=== PATIENT | female | born 1995 | race Caucasian/White ===

== ENCOUNTER 2021-04-18 12:38 | Outpatient (REF) | payer OTHER, SELFPAY ==
--- NOTE | ~2021-04-18 | XR_ITS ---
EXAMINATION: XR CHEST CLINICAL INFORMATION: Acute bronchospasm. COMPARISON: Chest radiographs dated 05/21/2018. TECHNIQUE: 2 views of the chest were obtained. FINDINGS: The lungs are clear. The cardiomediastinal silhouette is normal in size. There is no pleural effusion or pneumothorax. No acute osseous abnormality. XR/XR chest 2V IMPRESSION: No acute cardiopulmonary findings.
== END 2021-04-18 12:39 | disposition home or self-care (01) ==
LOC: HO.XRAY 12:38
PROVIDERS: PCP Hospitalist; Visit Provider Hospitalist
DX: J98.01 Acute bronchospasm (principal)
CPT/HCPCS: 71046

== ENCOUNTER 2021-06-10 12:48 | Outpatient (REF) | payer OTHER, SELFPAY | END 2021-06-10 12:49 | disposition home or self-care (01) | LOC: HO.LNP 12:48 | PROVIDERS: Visit Provider Physician Assistant Medical | DX: Z20.822 Contact with and (suspected) exposure to COVID-19 (principal) | CPT/HCPCS: U0003; U0005 ==

== ENCOUNTER 2022-02-14 08:56 | Outpatient (REF) | payer OTHER, SELFPAY ==
[2022-02-14 15:35] LABS: CT PCR NOT DETECTED (Not Detect.); NG PCR NOT DETECTED (Not Detect.)
== END 2022-02-14 08:57 | disposition home or self-care (01) ==
LOC: HO.LAB 08:56
PROVIDERS: Visit Provider Advanced Practice Midwife
DX: Z01.419 Encounter for gynecological examination (general) (routine) without abnormal findings (principal); Z20.2 Contact with and (suspected) exposure to infections with a predominantly sexual mode of transmission
CPT/HCPCS: 87491; 87591; 88142

== ENCOUNTER 2022-04-27 08:09 | Outpatient (REF) | payer OTHER, SELFPAY ==
[2022-04-27 11:20] LABS: MANUAL DIFF FLAG NO
[2022-04-27 11:37] LABS: Basophils Percent Auto 0.4 % (0-2); Eosinophils Absolute Auto 0.2 X10*3/uL (0.0-0.4); Eosinophils Percent Auto 2.5 % (0-4); Hematocrit 37.8 % (37.0-47.0); Hemoglobin 12.6 g/dl (12.0-16.0); Imm Gran Abs Auto 0.05 X10*3/uL (0.00-0.03); Imm Gran Pct Auto 0.7 % (0.0-0.4); Lymphocytes Absolute Auto 1.4 X10*3/uL (1.2-4.9); Lymphocytes Percent Auto 19.2 % (20-40); Mean Corpuscular HGB Conc 33.3 g/dl (31.0-35.0); Mean Corpuscular Hemoglobin 28.3 pg (27.0-33.0); Mean Corpuscular Volume 84.8 fL (80.0-98.0); Mean Platelet Volume 9.5 fL (9.4-12.3); Monocytes Absolute Auto 0.7 X10*3/uL (0.1-1.2); Monocytes Percent Auto 9.3 % (2-11); Neutrophils Absolute Auto 4.9 x10*3/uL (2.0-8.3); Neutrophils Percent Auto 67.9 % (45-73); Platelet Count 282 X10*3/uL (160-400); Red Blood Count 4.46 X10*6/uL (4.20-5.50); White Blood Count 7.2 X10*3/uL (4.8-10.8)
[2022-04-27 12:12] LABS: Alanine Aminotransferase 35 U/L (0-31); Albumin Level 4.1 g/dL (3.5-5.0); Alkaline Phosphatase 57 U/L (39-117); Anion Gap 14 (12-20); Aspartate Amino Transferase 29 U/L (5-31); Bilirubin Total 0.5 mg/dL (0.0-1.0); Blood Urea Nitrogen 11 mg/dL (9-16); Calcium 9.2 mg/dL (8.4-10.2); Carbon Dioxide 24 mmol/L (22-29); Chloride 106 mmol/L (96-108); Estimated Glomerular Filt Rate > 60; Glucose Fasting 90 mg/dL (60-99); Magnesium 2.2 mg/dL (1.6-2.6); Potassium 4.6 mmol/L (3.3-5.1); Sodium 139 mmol/L (135-145); Total Protein 6.7 g/dL (6.5-8.0)
[2022-04-27 12:17] LABS: TSH reflex Free T4 2.96 uIU/mL (0.32-4.0)
== END 2022-04-27 08:10 | disposition home or self-care (01) ==
LOC: HO.HMGCLDS 08:09
PROVIDERS: PCP Internal Medicine; Visit Provider Internal Medicine
DX: J45.901 Unspecified asthma with (acute) exacerbation (principal); E66.09 Other obesity due to excess calories; Z76.89 Persons encountering health services in other specified circumstances
CPT/HCPCS: 36415; 80053; 83735; 84443; 85025

== ENCOUNTER 2022-06-13 16:54 | Outpatient (REF) | payer OTHER, SELFPAY ==
[2022-06-13 17:52] LABS: Influenza A PCR POSITIVE (Negative); Influenza B PCR NEGATIVE (Negative); Resp Syncy Virus RNA Qual PCR NEGATIVE (Negative); SARS COV2 PCR INHOUSE NEGATIVE (Negative)
== END 2022-06-13 16:55 | disposition home or self-care (01) ==
LOC: HO.LNP 16:54
PROVIDERS: Visit Provider Nurse Practitioner Family
DX: Z20.822 Contact with and (suspected) exposure to COVID-19 (principal); R09.89 Other specified symptoms and signs involving the circulatory and respiratory systems
CPT/HCPCS: 0241U

== ENCOUNTER 2023-03-07 14:55 | Outpatient (AMB) | payer OTHER, SELFPAY ==
[2023-03-07 15:05] VITALS: BP 126/60; PULSE 87; O2SAT 98; BMI 41.5
--- NOTE | 2023-03-07 15:05 | A.OFFVIS_ITS ---
Intake Vital Signs 03/07/23 15:05 Height 5 ft 6 in Weight 256 lb 13.416 oz BMI 41.5 BP 126/60 Blood Pressure Location Rt brachial Position Sitting Pulse 87 Pulse Source Pulse Oximeter Pulse Oximetry (%) 98 Oxygen Delivery Method Room Air Intake Visit Reasons: Asthma Medical Educator Required: No Allergies fluconazole [From DIFLUCAN] Allergy (Unknown, Verified 03/07/23 15:08) RASH HPI HPI Comments History of Present Illness Details The patient is here for pulmonary evaluation. The patient is a 19 year woman presenting here with chronic cough. The patient states that she has had a significant cough for many years. Although, has been getting worse. Sometimes she has some severe coughing spells which she ends up vomiting. She has never passing out from her coughing spells. Her cough used to be more dry. Now, after starting inhaler therapy she has noticed that at times is more congested. She has a hard time expectorating her. She denies any exposure to any fumes or toxins. She denies any smoking. The patient does have underlying allergies although she has not had allergy testing many years. She has been treated with asthma with albuterol. She does get partial relief with the albuterol. She has tried other inhalers now Symbicort that her provides partial relief. She still struggling with a cough. Has a hard time sleeping because of the cough. She also wakes up short of breath. The patient is obese. She does have increased cardiovascular risk factors. Her or partner is with her and he is concerned because sometimes she does stop breathing in needs to wake her up or change her position. The patient has never had a sleep study. She also has underlying reflux symptoms. She takes a lot of times. Patient understands that the micro aspirations and pharyngeal angio penetration from underlying reflux disease can result with a worsening cough. The patient was coughing in the room. It appears that her cough is suggestive of some degree of tracheomalacia. Explained to the patient that with tracheomalacia is difficult to expectorate since her airway may be collapsing due to the forced exhalation while coughing. Therefore, will go ahead and request a chest x-ray and PFTs. The patient may warrant a CT scan if the x-ray is not helpful. In meantime will also request allergy testing and provide her with cough suppressant therapy. The patient does have an elevated Kingsford score of 10/24 and will also request a home sleep study. [facility] Medical History (Updated 03/07/23 @ 22:45 by Ramses Vidal MD) Allergy-induced asthma Chronic cough Surgical History History of tooth extraction Family History Father Medical history unknown Mother Hyperlipidemia Hypertension Afib Alcoholism Substance use disorder Mental health disorder Social History Housing: Condominium Alcohol intake: current Alcohol intake frequency: a few times a month Patient Tobacco Use Status: Never used Tobacco e-Cigarette/Vaping Use: Never Used service: No Current occupational status: employed Current occupation: [employer] Sexual orientation: Straight/Heterosexual Gender identity: Female Cognitive needs: No Hearing needs: No Vision needs: Yes Review of Systems Const Denies fever(s) Eyes Denies change in vision ENT Reports nasal congestion, Reports nasal discharge, Denies throat swelling and Denies tongue swelling Card Denies chest pain Resp Reports chest congestion and Reports cough GI Reports dyspepsia, Reports heartburn and Reports vomiting Musc Reports no additional complaints Skin/Breast Denies rash Neuro Reports no additional complaints Endo Denies flushing Harpal/Lymph Denies easy bruising Aller/Immun Denies throat swelling and Denies tongue swelling Physical Exam Vital Signs: Last Vital Signs Pulse 87 03/07/23 15:05 BP 126/60 03/07/23 15:05 Pulse Ox 98 03/07/23 15:05 Oxygen Delivery Method Room Air 03/07/23 15:05 BMI result Body Mass Index 41.5 Const General: comfortable HEENT Head: Yes normocephalic Neck Neck: Yes supple Chest Chest palpation & inspection: normal inspection of the chest Resp Effort & Inspection: normal respiratory effort and Actively coughing Quality: actively coughing Cardio Rate: regular rate Rhythm: regular rhythm Heart sounds: S1 normal heart sound present and S2 normal heart sound present GI Palpation (GI): Soft to palpation Skin General skin exam: no rashes or lesions noted Extrem General: Yes no clubbing, cyanosis or edema Assessment & Plan Assessment & Plan (1) Asthma, moderate persistent: Code(s): J45.40 - Moderate persistent asthma, uncomplicated Qualifiers: Asthma complication type: uncomplicated Qualified Code(s): J45.40 - Moderate persistent asthma, uncomplicated (2) Environmental allergies: Code(s): Z91.09 - Other allergy status, other than to drugs and biological substances (3) Chronic cough: Code(s): R05.3 - Chronic cough (4) SHARON (obstructive sleep apnea): Code(s): G47.33 - Obstructive sleep apnea (adult) (pediatric) Plan The patient is presenting with chronic cough. The cough is pretty significant and very suspicious for tracheomalacia. Possibly exacerbated by her chronic reflux disease. Also chronic reflux and microaspiration can also result in worsening asthma symptoms. Recommendations: Chest x-ray. If nondiagnostic will request a CT scan of the chest pulmonary function studies home sleep study blood work and allergy testing continue Symbicort short-acting beta agonist as needed cough suppressant: Tessalon Perles and guaifenesin with codeine follow-up after the PFTs and sleep study. If the patient is no better or worsens she is to call for an earlier assessment. Orders: Orders Rast Allergen Today H11.32 - Conjunctival hemorrhage, left eye, J45.40 - Moderate persistent asthma, uncomplicated, Z91.09 - Other allergy status, other than to drugs and biological substances Complete Blood Count Auto Diff Today H11.32 - Conjunctival hemorrhage, left eye, J45.40 - Moderate persistent asthma, uncomplicated, Z91.09 - Other allergy status, other than to drugs and biological substances Erythrocyte Sedimentation Rate Today H11.32 - Conjunctival hemorrhage, left eye, J45.40 - Moderate persistent asthma, uncomplicated, Z91.09 - Other allergy status, other than to drugs and biological substances Hypersensitive Pneumonitis Prf Today H11.32 - Conjunctival hemorrhage, left eye, J45.40 - Moderate persistent asthma, uncomplicated, R91.8 - Other nonspecific abnormal finding of lung field, Z91.09 - Other allergy status, other than to drugs and biological substances PFT pulmonary function test Today G47.33 - Obstructive sleep apnea (adult) (pediatric), R05.3 - Chronic cough RT home sleep study Today G47.33 - Obstructive sleep apnea (adult) (pediatric), R05.3 - Chronic cough Medications: New benzonatate 200 mg PO BID 30 days PRN 60 caps 10RF cough codeine-guaifenesin 10-100 mg/5 mL 10 mL PO Q6H 10 days PRN 300 mL 0RF cough omeprazole 40 mg PO DAILY 30 caps 5RF Refilled albuterol sulfate 90 mcg/actuation (ProAir HFA) 2 puffs PO Q6H PRN 8.5 ea 11RF for wheezing J45.20 - Mild intermittent asthma, uncomplicated Coding Level of Care Code New Pt Level 4 (80316) Diagnoses Asthma, moderate persistent J45.40 Asthma complication type: uncomplicated Environmental allergies Z91.09 Chronic cough R05.3 SHARON (obstructive sleep apnea) G47.33 Time Spent (min) 40
== END 2023-03-07 15:34 | disposition home or self-care (01) ==
PROVIDERS: PCP Internal Medicine; Visit Provider Hospitalist
DX: J45.40 Moderate persistent asthma, uncomplicated (principal); Z91.09 Other allergy status, other than to drugs and biological substances; R05.3 Chronic cough; G47.33 Obstructive sleep apnea (adult) (pediatric)
CPT/HCPCS: 99204

== ENCOUNTER → 2023-03-07 14:55 | Outpatient (BNVA) | payer OTHER, SELFPAY | PROVIDERS: PCP Internal Medicine; Visit Provider Hospitalist | DX: J45.40 Moderate persistent asthma, uncomplicated (principal); R05.3 Chronic cough; G47.33 Obstructive sleep apnea (adult) (pediatric); Z91.09 Other allergy status, other than to drugs and biological substances | CPT/HCPCS: 99202 ==

== ENCOUNTER 2023-04-02 14:48 | Outpatient (REF) | payer OTHER, SELFPAY | END 2023-04-02 14:49 | disposition home or self-care (01) | LOC: HO.RESP 14:48 | PROVIDERS: PCP Internal Medicine; Visit Provider Hospitalist | DX: R05.3 Chronic cough (principal); G47.33 Obstructive sleep apnea (adult) (pediatric) | CPT/HCPCS: 94640 ==

== ENCOUNTER → 2023-04-16 09:04 | Outpatient (REF) | payer OTHER, SELFPAY | LOC: HO.SL 09:04 | PROVIDERS: PCP Internal Medicine; Visit Provider Hospitalist | DX: G47.33 Obstructive sleep apnea (adult) (pediatric) (principal); R05.3 Chronic cough | CPT/HCPCS: 95806 ==

== ENCOUNTER → 2023-04-16 09:20 | Outpatient (BNV) | payer OTHER, SELFPAY | PROVIDERS: PCP Internal Medicine; Visit Provider Internal Medicine | DX: R06.83 Snoring (principal) | CPT/HCPCS: 95806 ==

== ENCOUNTER 2023-07-19 15:34 | Outpatient (AMB) | payer OTHER, SELFPAY ==
[2023-07-19 15:39] VITALS: PULSE 92; O2SAT 96; BMI 37.8
--- NOTE | 2023-07-19 15:39 | A.OFFVIS_ITS ---
Intake Vital Signs 07/19/23 15:39 Height 5 ft 4 in Weight 220 lb BMI 37.8 Pulse 92 Pulse Source Pulse Oximeter Pulse Oximetry (%) 96 Oxygen Delivery Method Room Air Intake Visit Reasons: Asthma Enterostomal Nurse Required: No Allergies fluconazole [From DIFLUCAN] Allergy (Unknown, Verified 07/19/23 15:40) RASH HPI HPI Comments History of Present Illness Details The patient is a 27 year woman presenting here with chronic cough. The patient states that she has had a significant cough for many years. Although, has been getting worse. Sometimes she has some severe coughing spells which she ends up vomiting. She has never passing out from her coughing spells. Her cough used to be more dry. Now, after starting inhaler therapy she has noticed that at times is more congested. She has a hard time expectorating her. She denies any exposure to any fumes or toxins. She denies any smoking. The patient does have underlying allergies although she has not had allergy testing many years. She has been treated with asthma with albuterol. She does get partial relief with the albuterol. She has tried other inhalers now Symbicort that her provides partial relief. She still struggling with a cough. Has a hard time sleeping because of the cough. She also wakes up short of breath. The patient is obese. She does have increased cardiovascular risk factors. Her or partner is with her and he is concerned because sometimes she does stop breathing in needs to wake her up or change her position. The patient has never had a sleep study. She also has underlying reflux symptoms. She takes a lot of times. Patient understands that the micro aspirations and pharyngeal angio penetration from underlying reflux disease can result with a worsening cough. The patient was coughing in the room. It appears that her cough is suggestive of some degree of tracheomalacia. Explained to the patient that with tracheomalacia is difficult to expectorate since her airway may be collapsing due to the forced exhalation while coughing. Therefore, will go ahead and request a chest x-ray and PFTs. The patient may warrant a CT scan if the x-ray is not helpful. In meantime will also request allergy testing and provide her with cough suppressant therapy. The patient does have an elevated Millwood score of 10/24 and will also request a home sleep study. 07/19/2023 the patient is here for pulmon tony follow-up visit. The patient has been sick now for several days. Positive sick contacts her developing worsening cough moderate to severe. Also significant wheezing. She has been using her respiratory therapy. Our only been partially helpful. We did review her PFTs the patient has significant reversible obstruction consistent with her diagnosis of asthma. She has been on Symbicort. Will go ahead and try to maximize her respiratory medicine. However, she continues to be symptomatic or having recurrent flare-ups she will benefit from biologic therapy. She has yet to get her blood work. She will get her blood work when she is better and off the prednisone. COUNT INCLUDES THE [facility] Medical History (Updated 07/21/23 @ 20:45 by Ramses Vidal MD) Chronic cough Allergy-induced asthma Surgical History History of tooth extraction Family History Father Medical history unknown Mother Hyperlipidemia Hypertension Afib Alcoholism Substance use disorder Mental health disorder Social History Housing: Condominium Alcohol intake: current Alcohol intake frequency: a few times a month Patient Tobacco Use Status: Never used Tobacco e-Cigarette/Vaping Use: Never Used service: No Current occupational status: employed Current occupation: [employer] Sexual orientation: Straight/Heterosexual Gender identity: Female Cognitive needs: No Hearing needs: No Vision needs: Yes Review of Systems Const Denies fever(s) Eyes Denies change in vision ENT Reports nasal congestion, Reports nasal discharge, Denies throat swelling and Denies tongue swelling Card Denies chest pain and Reports dyspnea on exertion Resp Reports chest congestion, Reports cough, Reports dyspnea on exertion and Reports wheezing GI Reports dyspepsia, Reports heartburn and Reports vomiting Musc Reports no additional complaints Skin/Breast Denies rash Neuro Reports no additional complaints Endo Denies flushing Harpal/Lymph Denies easy bruising Aller/Immun Denies throat swelling, Denies tongue swelling and Reports wheezing Physical Exam Vital Signs: Last Vital Signs Pulse 92 07/19/23 15:39 Pulse Ox 96 07/19/23 15:39 Oxygen Delivery Method Room Air 07/19/23 15:39 BMI result Body Mass Index 37.8 Const General: comfortable HEENT Head: Yes normocephalic Neck Neck: Yes supple Chest Chest palpation & inspection: normal inspection of the chest Resp Effort & Inspection: normal respiratory effort, Actively coughing Quality: actively coughing and prolonged expiratory phase Auscultation: wheezes Cardio Rate: regular rate Rhythm: regular rhythm Heart sounds: S1 normal heart sound present and S2 normal heart sound present GI Palpation (GI): Soft to palpation Skin General skin exam: no rashes or lesions noted Extrem General: Yes no clubbing, cyanosis or edema Assessment & Plan Assessment & Plan (1) Asthma, moderate persistent: Code(s): J45.40 - Moderate persistent asthma, uncomplicated Qualifiers: Asthma complication type: with acute exacerbation Qualified Code(s): J45.41 - Moderate persistent asthma with (acute) exacerbation (2) Environmental allergies: Code(s): Z91.09 - Other allergy status, other than to drugs and biological substances (3) Chronic cough: Code(s): R05.3 - Chronic cough (4) SHARON (obstructive sleep apnea): Code(s): G47.33 - Obstructive sleep apnea (adult) (pediatric) Plan start Zpack start Prednisone cough syrup blood work and allergy testing not done as of yet continue Symbicort Add Spiriva short-acting beta agonist as needed consider biologic therapy cough suppressant: Tessalon Perles and guaifenesin with codeine F/U 3-4 months or sooner if no better Medications: New budesonide-formoterol 160-4.5 mcg/actuation (Symbicort) 2 puffs inhalation BID 30 days 10.2 grams 11RF J44.89 - Other specified chronic obstructive pulmonary disease azithromycin 500 mg PO DAILY 5 days 5 tabs 0RF prednisone PO daily; Take 2 tabs daily x 5 days, then 1 tablet daily x 5 days 10 days 15 tabs 0RF codeine-guaifenesin 10-100 mg/5 mL 10 mL PO Q6H 10 days PRN 300 mL 0RF cough Coding Level of Care Code Est Pt Level 4 (39260) Diagnoses Moderate persistent asthma with acute exacerbation J45.41 Asthma complication type: with acute exacerbation Environmental allergies Z91.09 Chronic cough R05.3 SHARON (obstructive sleep apnea) G47.33 Time Spent (min) 17
== END 2023-07-19 15:58 | disposition home or self-care (01) ==
PROVIDERS: PCP Internal Medicine; Visit Provider Hospitalist
DX: J45.41 Moderate persistent asthma with (acute) exacerbation (principal); Z91.09 Other allergy status, other than to drugs and biological substances; R05.3 Chronic cough; G47.33 Obstructive sleep apnea (adult) (pediatric)
CPT/HCPCS: 99214

== ENCOUNTER → 2023-07-19 15:34 | Outpatient (BNVA) | payer OTHER, SELFPAY | PROVIDERS: PCP Internal Medicine; Visit Provider Hospitalist | DX: J45.41 Moderate persistent asthma with (acute) exacerbation (principal); R05.3 Chronic cough; G47.33 Obstructive sleep apnea (adult) (pediatric); Z79.899 Other long term (current) drug therapy; Z91.09 Other allergy status, other than to drugs and biological substances | CPT/HCPCS: 99212 ==

== ENCOUNTER 2023-07-24 13:13 | Outpatient (REF) | payer OTHER, SELFPAY ==
[2023-07-25 05:01] LABS: CT PCR NOT DETECTED (Not Detect.); NG PCR NOT DETECTED (Not Detect.)
== END 2023-07-24 13:14 | disposition home or self-care (01) ==
LOC: HO.LNP 13:13
PROVIDERS: PCP Internal Medicine; Visit Provider Advanced Practice Midwife
DX: Z01.419 Encounter for gynecological examination (general) (routine) without abnormal findings (principal); Z20.2 Contact with and (suspected) exposure to infections with a predominantly sexual mode of transmission
CPT/HCPCS: 0353U; 81025; 88142; 99395

== ENCOUNTER 2023-07-24 13:13 | Outpatient (AMB) | payer OTHER, SELFPAY ==
--- NOTE | 2023-07-24 13:28 | MHC.OFFVIS ---
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 Doing well with concerns: Menses q 35-36, early day 27 in May and and none since. Hx. of HCTZ use in the past, FH HTN. She tries to eat healthy and stays active with exercise. Currently is sexually active without condoms, is at [facility] [place] in the [facility] program last year until they closed. She reports all her lab hormone levels were normal. She admits her had surgery recently. She denies any other changes or events I could affect her cycling. She denies vaginal itching and irritation. STI screening offered; she accepts. Denies family history of breast, ovarian or colon cancer. Last pap smear 2021, negative. Hx. LGSIL. PFSH Medical History Chronic cough Allergy-induced asthma Surgical History History of tooth extraction Family History Father Medical history unknown Mother Hyperlipidemia Hypertension Afib Alcoholism Substance use disorder Mental health disorder Social History Housing: Condominium Alcohol intake: current Alcohol intake frequency: a few times a month Patient Tobacco Use Status: Never used Tobacco e-Cigarette/Vaping Use: Never Used service: No Current occupational status: employed Current occupation: [employer] Sexual orientation: Straight/Heterosexual Gender identity: Female Cognitive needs: No Hearing needs: No Vision needs: Yes Female Reproductive History Menstrual Date of last menstrual period: 05/18/23 control method: none Total pregnancies: 1 Full term: 1 Number of Living Children: 1 Date of last pap smear: 02/14/22 (neg) History of abnormal pap smear: Yes (09/23 lgsil 02/23 neg,neg) Review of Systems Const All systems reviewed & are unremarkable except as noted in HPI and below Reports as per HPI Eyes Reports no additional complaints ENT Reports no additional complaints Card Reports no additional complaints Resp Reports no additional complaints GI Reports as per HPI and Reports no additional complaints Reports as per HPI Musc Reports no additional complaints Skin/Breast Reports as per HPI Neuro Reports no additional complaints Psych Reports no additional complaints Endo Reports no additional complaints Harpal/Lymph Reports no additional complaints Aller/Immun Reports no additional complaints Physical Exam Vital Signs: Last Vital Signs BP 124/86 07/24/23 14:07 BMI result Body Mass Index 43.1 Const General: cooperative, healthy appearing, no acute distress, well developed and alert Orientation/consciousness: patient oriented x3 HEENT Head: Yes normal to inspection Eyes General: appearance normal, both eyes and all related structures Neck Neck: Yes normal visual inspection Thyroid: Thyroid normal Chest Chest palpation & inspection: normal inspection of the chest and other (no puckering, dimpling, peau de orange, retraction, discharge, masses) Breast/axilla inspection: normal inspection of the breasts Breast/axilla palpation: normal palpation of the breasts Resp Effort & Inspection: normal respiratory effort GI Inspection: Yes normal to inspection and Yes obesity Palpation (GI): Soft to palpation Rectal Exam - Female: deferred General: Yes bladder normal to palpation External Female Exam: normal external appearance and normal appearance of the urethra Speculum Exam - Vagina: normal appearance of the vagina, normal palpation and normal vaginal discharge Speculum Exam - Cervix: normal appearance of the cervix and normal palpation Bimanual exam- vagina & uterus: normal bimanual exam, normal palpation, uterine size normal, bladder normal to palpation, normal palpation and non-tender Bimanual Exam- Adnexa, other: no masses Skin General skin exam: no rashes or lesions noted Rashes: no rashes Neuro General: patient oriented x3 Cognition (Neuro): normal cognition Extrem General: Yes normal to inspection Psych Attitude: cooperative Thought process: Normal thought process present Results AMB Test Urine AMB Test Urine Negative Last Edit by TRISTON Luke on 07/24/23 13:39 Results Reviewed Results Reviewed: Laboratory Last Values Tst Clinic Negative 07/24/23 13:38 Assessment & Plan Assessment & Plan (1) Encounter for well woman exam with routine gynecological exam: Code(s): Z01.419 - Encounter for gynecological examination (general) (routine) without abnormal findings Plan Discussed: Current recommendations for pap smears per ASCCP guidelines. Breast awareness and periodic breast exams. Maintain a healthy lifestyle including a well balanced diet and routine exercise, maintaining a healthy weight. Discussed stress, weight elevated BMI, in other factors that can affect menstrual cycling regularity. Restart vitamins. Monitor monthly periods, repeat home test as indicated. Discuss the use of Provera if not cycling regularly to call the office for follow-up. Call [facility] [place] regarding their infertility program restarting point, or go to [place] or other facility for services. Follow-up with her PCP for blood pressure monitoring. All of her questions and concerns were addressed to the best of my ability. RTO in one year for annual capsule filling machine operator examination. This note is constructed using voice recognition software. While every effort has been made to ensure accuracy, child and youth program assistant errors may have been included. Orders: Orders AMB HCG Urine Test Today Z32.02 - Encounter for test, result negative CT NG by PCR Today Z20.2 - Contact with and (suspected) exposure to infections with a predominantly sexual mode of transmission Pap Smear Today Z01.419 - Encounter for gynecological examination (general) (routine) without abnormal findings Medications: New medroxyprogesterone (Provera) 10 mg PO DAILY 5 days 5 tabs 0RF PNV,calcium [id number] acid 27 mg iron- 1 mg ( Vitamins Plus Low Iron) 1 tab PO DAILY 90 tabs 4RF Coding Level of Care Code Est Pt Prev Care 18-39y(43611) Diagnoses Encounter for well woman exam with routine gynecological exam Z01.419
[2023-07-24 13:29] VITALS: BP 142/100; BMI 43.1
[2023-07-24 14:07] VITALS: BP 124/86
== END 2023-07-24 14:12 | disposition home or self-care (01) ==
PROVIDERS: PCP Internal Medicine; Visit Provider Advanced Practice Midwife
DX: Z32.02 Encounter for pregnancy test, result negative (principal); Z01.419 Encounter for gynecological examination (general) (routine) without abnormal findings
CPT/HCPCS: 99395

== ENCOUNTER 2024-04-07 12:34 | Outpatient (AMB) | payer OTHER, SELFPAY ==
[2024-04-07 12:36] VITALS: BP 110/80; PULSE 70; O2SAT 97; BMI 41.2
--- NOTE | 2024-04-07 12:36 | MHC.PC.OV ---
Vital Signs 04/07/24 12:36 Height 5 ft 4 in Weight 240 lb BMI 41.2 BP 110/80 Blood Pressure Location Lt brachial Position Sitting Pulse 70 Pulse Source Pulse Oximeter Pulse Oximetry (%) 97 Oxygen Delivery Method Room Air Intake Visit Reasons: Annual exam Allergies fluconazole [From DIFLUCAN] Allergy (Unknown, Verified 04/07/24 12:37) RASH Medication List - Last Reconciled 04/07/24 by Kathleen Jenkins MD albuterol sulfate 2.5 mg (3 mL) inhalation Q8H PRN 1 month albuterol sulfate 90 mcg/actuation 2 puffs PO Q6H PRN budesonide-formoterol 160-4.5 mcg/actuation (Symbicort) 2 puffs inhalation BID 30 days fluticasone propionate 50 mcg/actuation (Allergy Relief (fluticasone)) 2 sprays intranasal DAILY 1 month levocetirizine 5 mg PO DAILY montelukast (Singulair) 10 mg PO BEDTIME nebulizers (Altera Nebulizer Handset) As directed omeprazole 40 mg PO DAILY PNV,calcium 25-onvh-bxdwp acid 27 mg iron- 1 mg ( Vitamins Plus Low Iron) 1 tab PO DAILY tiotropium bromide 2.5 mcg/actuation (Spiriva Respimat) 2 puffs inhalation DAILY 30 days Tobacco use date assessed: 04/07/24 Dental Screening Dental Screen Date: 04/07/24 Did you have a dental visit in the last 12 months?: Yes Did you have a dental problem in the last 6 months where you did not have access to dental care?: No Was dental information given to patient?: Patient has dentist HPI Annual exam HPI Details Patient is 28-year-old female came in for physical examination Patient is established with sales and training specialist Dr. Vidal for asthma management She says that her allergies are not controlled Even though she is taking Xyzal, montelukast, and Flonase nasal spray She also have a deep hacking cough for the past 2 weeks She is due for labs Patient is established with [facility] last visit was July of this year On examination her lungs are clear but she starts coughing with a deep breath Her cough is deep and hacking I am treating her with antibiotic and prednisone Referral to pharmacy account director placed [facility] Medical History Chronic cough Allergy-induced asthma Surgical History History of tooth extraction Family History Father Medical history unknown Mother Hyperlipidemia Hypertension Afib Alcoholism Substance use disorder Mental health disorder Social History Housing: Condominium Alcohol intake: current Alcohol intake frequency: a few times a month Patient Tobacco Use Status: Never used Tobacco e-Cigarette/Vaping Use: Never Used service: No Current occupational status: employed Current occupation: [employer] Sexual orientation: Straight/Heterosexual Gender identity: Female Cognitive needs: No Hearing needs: No Vision needs: Yes Questionnaire PHQ-9 Over the last 2 weeks, how often have you been bothered by any of the following problems? 1. Little interest or pleasure in doing things: not at all 2. Feeling down, depressed, or hopeless: not at all 3. Trouble falling or staying asleep, or sleeping too much: not at all 4. Feeling tired or having little energy: not at all 5. Poor appetite or overeating: not at all 6. Feeling bad about yourself - or that you are a failure or have let yourself or your family down: not at all 7. Trouble concentrating on things, such as reading the newspaper or watching television: not at all 8. Moving or speaking so slowly that other people could have noticed. Or the opposite - being so fidgety or restless that you have been moving around a lot more than usual: not at all 9. Thoughts that you would be better off or of hurting yourself in some way: not at all Total score: 0 Depression Screening Interpretation: Negative Depression Screening Done: Yes [id number] - PHQ-9 Billing: Yes Source: Developed by Drs. Nic Baxter, Skye Jacob, Yuri Del Valle and colleagues, with an educational gen from [employer]. Thrive Questionnaire Date Thrive assessed: 04/07/24 I am a: Patient What is your living situation today?: I have a steady place to live Within the past 12 months, did the food you bought not last and you didn't have the money to get more?: Never true Within the past 12 months, did you worry whether your food would run out before you got money to buy more?: Never true Do you have trouble paying for medicines?: No Do you have trouble getting transportation to medical appointments?: No Do you have trouble paying your heating and electricity bill?: No Do you have trouble taking care of your child, family member or friend?: No Do you have trouble with day-to-day activities such as bathing, preparing meals, shopping, managing finances, etc.?: No Are you interested in more education?: No Please select the resources that you would like help with: None Currently or been in a relationship where the following occur: No concerns reported THRIVE Score: 0 AUDIT C Alcohol Use Questionnaire (AUDIT-C) 1. How often do you have a drink containing alcohol?: Monthly or less 2. How many drinks containing alcohol do you have on a typical day when you are drinking?: 3 or 4 3. How often do you have six or more drinks on one occasion?: Never Total Score: 2 THELMA-7 AMB Questionnaire THELMA-7 Date THELMA - 7 assessed: 04/07/24 Feeling nervous, anxious, or on edge: 0 = Not at all Not being able to stop or control worryin = Several days Worrying too much about different things: 1 = Several days Trouble relaxin = Not at all Being so restless that it is hard to sit still: 0 = Not at all Becoming easily annoyed or irritable: 0 = Not at all Feeling afraid as if something awful might happen: 0 = Not at all Total THELMA-7 score (0-4 normal; 5-9 mild; 10-14 moderate; 15-21 severe): 2 Source: Developed by Drs. Nic Baxter, Skye Jacob, Yuri Del Valle and colleagues, with an educational gen from [employer]. Review of Systems Const Denies chills and Denies fever(s) Eyes Denies blurry vision ENT Denies odynophagia and Denies sinus pain Card Denies chest pain at rest and Denies chest pain with activity Resp Denies hemoptysis GI Denies diarrhea, Denies odynophagia, Denies vomiting and Denies hematemesis Reports as per HPI Musc Denies abnormal gait Skin/Breast Reports as per HPI Neuro Denies Neuro-related abnormal movements, Denies Abnormal speech present, Denies abnormal gait and Denies Sensory deficit (Neuro) Psych Denies mood swings and Denies paranoia Endo Reports as per HPI Harpal/Lymph Reports as per HPI Aller/Immun Reports as per HPI Physical exam (Primary Care) Vital Signs: Last Vital Signs Pulse 70 04/07/24 12:36 BP 110/80 04/07/24 12:36 Pulse Ox 97 04/07/24 12:36 Oxygen Delivery Method Room Air 04/07/24 12:36 BMI result Body Mass Index 41.2 Tobacco/Smoking Status: Tobacco use Status Tobacco use date assessed 04/07/24 04/07/24 12:40 Patient Tobacco Use Status Never used Tobacco 04/07/24 12:40 e-Cigarette/Vaping Use Never Used 04/07/24 12:40 PHQ-9: PHQ-9 Score PHQ-9: Total score 0 04/07/24 12:40 Depression Screening Interpretation: Negative Thrive Assessment: Date of Thrive Assessment Date Thrive assessed 04/07/24 04/07/24 12:40 Currently or been in a relationship where the following occur: No concerns reported Const General: cooperative, comfortable and no acute distress Orientation/consciousness: patient oriented x3 HENMT Head: Yes normocephalic and Yes atraumatic Eyes General: appearance normal, both eyes and all related structures Pupils: Equal, round and reactive pupils present EOM: EOMs intact bilaterally Neck Neck: Yes supple and No lymphadenopathy Thyroid: Thyroid normal Lymphatic: no lymphadenopathy noted Resp Effort & Inspection: normal respiratory effort and able to speak in complete sentences Auscultation: clear to auscultation bilaterally Cardio Heart sounds: S1 normal heart sound present and S2 normal heart sound present GI Palpation (GI): Soft to palpation and nontender Auscultation: normal bowel sounds General: Yes no CVA tenderness Back/Spine/Pelvis Back: no CVA tenderness Skin General skin exam: elasticity normal and turgor normal Neuro General: patient oriented x3 and gait normal Cranial nerves: Yes Equal, round and reactive pupils present Speech: No Abnormal speech present Sensory Exam: No Sensory deficit (Neuro) Coordination: tandem gait normal and Romberg test negative Extrem General: Yes normal exam except as noted and No edema Coding Level of Care Code Est Pt Level 4 (18816) Est Pt Prev Care 18-39y(42248) Diagnoses Encounter for general adult medical examination with abnormal findings Z00.01 Acute cough R05.1 Cough type: acute Moderate persistent asthma with exacerbation J45.41 Asthma persistence: persistent Asthma severity: moderate Moderate persistent asthma with acute exacerbation J45.41 Asthma complication type: with acute exacerbation Environmental allergies Z91.09 Morbid obesity due to excess calories E66.01 Uncontrolled moderate persistent asthma with allergic rhinitis J45.40 Other headache syndrome G44.89 Headache type: other headache syndrome Assessment & Plan Assessment & Plan (1) Encounter for general adult medical examination with abnormal findings: Code(s): Z00.01 - Encounter for general adult medical examination with abnormal findings Category: Medical (2) Cough: Code(s): R05.9 - Cough, unspecified Category: Medical Qualifiers: Cough type: acute Qualified Code(s): R05.1 - Acute cough (3) Asthma exacerbation: Code(s): J45.901 - Unspecified asthma with (acute) exacerbation Category: Medical Qualifiers: Asthma persistence: persistent Asthma severity: moderate Qualified Code(s): J45.41 - Moderate persistent asthma with (acute) exacerbation (4) Asthma, moderate persistent: Code(s): J45.40 - Moderate persistent asthma, uncomplicated Category: Medical Qualifiers: Asthma complication type: with acute exacerbation Qualified Code(s): J45.41 - Moderate persistent asthma with (acute) exacerbation (5) Environmental allergies: Code(s): Z91.09 - Other allergy status, other than to drugs and biological substances Category: Medical (6) Morbid obesity due to excess calories: Code(s): E66.01 - Morbid (severe) obesity due to excess calories Category: Medical (7) Uncontrolled moderate persistent asthma with allergic rhinitis: Code(s): J45.40 - Moderate persistent asthma, uncomplicated Category: Medical (8) Headache: Code(s): R51.9 - Headache, unspecified Category: Medical Qualifiers: Headache type: other headache syndrome Qualified Code(s): G44.89 - Other headache syndrome Plan Patient is 28-year-old female came in for physical examination Patient is established with sales and training specialist Dr. Vidal for asthma management She says that her allergies are not controlled Even though she is taking Xyzal, montelukast, and Flonase nasal spray She also have a deep hacking cough for the past 2 weeks Coughing is making her headache worse She is due for labs Patient is established with [facility] last visit was July of this year On examination her lungs are clear but she starts coughing with a deep breath Her cough is deep and hacking I am treating her with antibiotic and prednisone Referral to pharmacy account director placed Orders: Orders Complete Blood Count Auto Diff Today E66.01 - Morbid (severe) obesity due to excess calories, J45.41 - Moderate persistent asthma with (acute) exacerbation, Z00.01 - Encounter for general adult medical examination with abnormal findings, Z91.09 - Other allergy status, other than to drugs and biological substances Comprehensive [place]. Panel Fast Today E66.01 - Morbid (severe) obesity due to excess calories, J45.41 - Moderate persistent asthma with (acute) exacerbation, Z00.01 - Encounter for general adult medical examination with abnormal findings, Z91.09 - Other allergy status, other than to drugs and biological substances Lipid Panel Today E66.01 - Morbid (severe) obesity due to excess calories, J45.41 - Moderate persistent asthma with (acute) exacerbation, Z00.01 - Encounter for general adult medical examination with abnormal findings, Z91.09 - Other allergy status, other than to drugs and biological substances TSH reflex Free T4 Today E66.01 - Morbid (severe) obesity due to excess calories, J45.41 - Moderate persistent asthma with (acute) exacerbation, Z00.01 - Encounter for general adult medical examination with abnormal findings, Z91.09 - Other allergy status, other than to drugs and biological substances Medications: New azithromycin Take 2 tablets today then 1 daily 250 mg PO ONCE 5 days 6 tabs 0RF J06.9 - Acute upper respiratory infection, unspecified prednisone 20 mg PO .qd 5 days 5 tabs 0RF
== END 2024-04-07 12:57 | disposition home or self-care (01) ==
PROVIDERS: PCP Internal Medicine; Visit Provider Internal Medicine
DX: Z00.01 Encounter for general adult medical examination with abnormal findings (principal); R05.1 Acute cough; J45.41 Moderate persistent asthma with (acute) exacerbation; Z91.09 Other allergy status, other than to drugs and biological substances; E66.01 Morbid (severe) obesity due to excess calories; J45.40 Moderate persistent asthma, uncomplicated; G44.89 Other headache syndrome; Z68.41 Body mass index [BMI] 40.0-44.9, adult

== ENCOUNTER → 2024-04-07 12:34 | Outpatient (BNVA) | payer OTHER, SELFPAY | PROVIDERS: PCP Internal Medicine; Visit Provider Internal Medicine | DX: Z00.01 Encounter for general adult medical examination with abnormal findings (principal); R05.1 Acute cough; J45.40 Moderate persistent asthma, uncomplicated; Z91.09 Other allergy status, other than to drugs and biological substances; E66.01 Morbid (severe) obesity due to excess calories; G44.89 Other headache syndrome | CPT/HCPCS: 96127; 99212; 99395 ==

== ENCOUNTER 2024-04-07 13:02 | Outpatient (REF) | payer OTHER, SELFPAY ==
[2024-04-07 16:28] LABS: MANUAL DIFF FLAG NO
[2024-04-07 16:37] LABS: Basophils Absolute Auto 0.1 X10*3/uL (0.0-0.2); Basophils Percent Auto 0.9 % (0-2); Eosinophils Absolute Auto 0.1 X10*3/uL (0.0-0.4); Eosinophils Percent Auto 1.7 % (0-4); Hematocrit 39.2 % (37.0-47.0); Hemoglobin 13.2 g/dl (12.0-16.0); Imm Gran Abs Auto 0.03 X10*3/uL (0.00-0.03); Imm Gran Pct Auto 0.5 % (0.0-0.4); Lymphocytes Absolute Auto 1.4 X10*3/uL (1.2-4.9); Lymphocytes Percent Auto 24.6 % (20-40); Mean Corpuscular HGB Conc 33.7 g/dl (31.0-35.0); Mean Corpuscular Hemoglobin 28.4 pg (27.0-33.0); Mean Corpuscular Volume 84.5 fL (80.0-98.0); Mean Platelet Volume 9.2 fL (9.4-12.3); Monocytes Absolute Auto 0.6 X10*3/uL (0.1-1.2); Monocytes Percent Auto 9.6 % (2-11); Neutrophils Absolute Auto 3.6 x10*3/uL (2.0-8.3); Neutrophils Percent Auto 62.7 % (45-73); Platelet Count 287 X10*3/uL (160-400); Red Blood Count 4.64 X10*6/uL (4.20-5.50); Red Cell Distribution Width 12.4 % (11.0-16.0); White Blood Count 5.7 X10*3/uL (4.8-10.8)
[2024-04-07 16:59] LABS: Anion Gap 13 (12-20)
[2024-04-07 17:15] LABS: TSH reflex Free T4 2.07 uIU/mL (0.32-4.0)
[2024-04-07 17:23] LABS: Alanine Aminotransferase 32 U/L (0-31); Albumin Level 4.2 g/dL (3.5-5.0); Alkaline Phosphatase 48 U/L (39-117); Aspartate Amino Transferase 22 U/L (5-31); Bilirubin Total 0.7 mg/dL (0.0-1.0); Blood Urea Nitrogen 10 mg/dL (9-16); Calcium 9.5 mg/dL (8.4-10.2); Carbon Dioxide 25 mmol/L (22-29); Chloride 107 mmol/L (96-108); Cholesterol 191 mg/dL (<200); Estimated Glomerular Filt Rate > 60; Glucose Fasting 89 mg/dL (60-99); HDL Cholesterol 40 mg/dL (>40); LDL Cholesterol Calculated 124 mg/dL (<100); Potassium 3.7 mmol/L (3.3-5.1); Sodium 141 mmol/L (135-145); Total Protein 7.3 g/dL (6.5-8.0); Triglycerides 139 mg/dL (<150)
== END 2024-04-07 13:03 | disposition home or self-care (01) ==
LOC: HO.HMGCLDS 13:02
PROVIDERS: PCP Internal Medicine; Visit Provider Internal Medicine
DX: Z00.01 Encounter for general adult medical examination with abnormal findings (principal); J45.41 Moderate persistent asthma with (acute) exacerbation; Z91.09 Other allergy status, other than to drugs and biological substances; E66.01 Morbid (severe) obesity due to excess calories
CPT/HCPCS: 36415; 80053; 80061; 84443; 85025

== ENCOUNTER 2024-08-26 08:24 | Outpatient (REF) | payer OTHER, SELFPAY ==
--- OUTSIDE RECORDS SUMMARY | 2024-08-26 08:28 | XMS_ITS | Patient Health Record ---
Author Organization [facility] Address [address] [place] [address] Care Team Providers Care Application Support Administrator Name Role Phone CARMEN PARDO Unavailable [phone] Allergies Allergen (clinical drug ingredient) Drug/Non Drug Allergy documented on EMR Reaction Allergy Type Onset Date Status fluconazole Diflucan rash/hives Drug Allergy Acti ve Reason For Referral No Information Medications Medication SIG (Take, Route, Fr equency, Duration) Notes Start Date End Date Status ProAir HFA Active Xyzal Allergy 24HR 5 MG 1 tablet in the evening Orally Once a day Active Social History Tobacco Use: Social History Observation Description Date Details (start date - stop date) Never Smoker NA - NA Tobacco Use/Smoking Question Answer Notes Are you a nonsmoker Alcohol Screen (Audit-C) Question Answer Notes Did you have a drink contain ing alcohol in the past year? Yes How often did you have a dri nk containing alcohol in the past year? Monthly or less (1 point) How many drinks did you have on a typical day when you were drinking in the past year? 1 or 2 drinks (0 point) How often did you have 6 or more drinks on one occasion in the past year? Never (0 point) Points 1 Interpretation Negative Plan Of Treatment No Information Insurance Providers Payer Name Payer Address Payer Phone Subscriber Number Group Number Insured Name Patient Relationship to Insured Coverage Start Date Coverage End Date [facility] [address] [address] [place] [address] [id number] CHARLY VICENTE Self - patient is the insured Medical (General) History Surgical History Surgery Date(Month/Year)
[2024-08-28 21:17] LABS: TS Negative Control Passed; TS Panel A 0; TS Panel B 0; TS Positive Control Passed; TSpotTB Negative (Negative)
== END 2024-08-26 08:25 | disposition home or self-care (01) ==
LOC: HO.HMGCLDS 08:24
PROVIDERS: PCP Internal Medicine; Visit Provider Internal Medicine
DX: Z11.1 Encounter for screening for respiratory tuberculosis (principal)
CPT/HCPCS: 36415; 86481

== ENCOUNTER 2024-10-06 08:14 | Emergency (ER) | payer OTHER, MEDICAID, SELFPAY ==
--- NOTE | ~2024-10-06 | CT_ITS ---
EXAMINATION: CT ABDOMEN PELVIS WITH IV CONTRAST HISTORY: abdominal pain, diarrhea, bloody stools COMPARISON: Comparison is made with the prior examination dated 05/22/2019. TECHNIQUE: CT scan of the abdomen and pelvis was performed following administration of 85 mL Omnipaque 350 using standard departmental protocol. Coronal and sagittal reformatted images were generated and reviewed. Oral contrast material was not administered at the request of the referring physician. This CT exam was performed with one or more of the following dose reduction techniques: automated exposure control, adjustment of the mA and/or kV according to patient size, use of iterative reconstruction technique. DLP: 775 mGy-cm FINDINGS: LOWER CHEST: The visualized lung bases are clear. There is no pleural effusion. CARDIOVASCULATURE: The heart is normal in size. There is no pericardial effusion. LIVER: The liver is normal in size and contour. No liver mass is identified. The hepatic and portal veins are patent. GALLBLADDER / BILE DUCTS: The gallbladder is unremarkable. There is no intra or extrahepatic biliary ductal dilatation. SPLEEN: The spleen is normal in size. No focal splenic lesion is identified. PANCREAS: The pancreas is unremarkable in appearance. ADRENAL GLANDS: Within normal limits. KIDNEYS/RETROPERITONEUM: No renal calculi are identified. There is no hydronephrosis. No renal masses are identified. LYMPH NODES: No abdominal or pelvic lymphadenopathy. VASCULATURE: The abdominal aorta is normal in caliber. MESENTERY/PERITONEUM: No free fluid. No masses. There is no free intraperitoneal gas. STOMACH: The stomach is unremarkable. SMALL BOWEL: The small bowel is normal in caliber. COLON: The majority of the colon is collapsed. However, there appears to be diffuse wall thickening of the transverse and descending colon with mild pericolonic inflammatory stranding. Findings are compatible with colitis. There is no extraluminal gas or loculated fluid collection. APPENDIX: Normal. URINARY BLADDER/PELVIC ORGANS: The urinary bladder is collapsed, limiting evaluation. The uterus and ovaries are unremarkable. BONES / SOFT TISSUES: No suspicious bony or soft tissue abnormalities. CT/CT abdomen pelvis w IV con IMPRESSION: Findings suggestive of colitis involving the transverse and descending colon, as described. Electronically signed by: Nic Friedman MD 10/06/2024 01:55 PM EDT RP
[2024-10-06 08:31] VITALS: BP 134/86; PULSE 101; RESP 16; TEMP 36.7; O2SAT 96; BMI 37.2
[2024-10-06] MEDS: Ondansetron ODT 4 MG TAB.RAPDIS TRANSLINGU (08:39)
[2024-10-06 08:55] LABS: Basophils Percent Auto 0.3 % (0-2); Eosinophils Percent Auto 0.3 % (0-4); Hematocrit 41.5 % (37.0-47.0); Hemoglobin 14.5 g/dl (12.0-16.0); Imm Gran Abs Auto 0.05 X10*3/uL (0.00-0.03); Imm Gran Pct Auto 0.4 % (0.0-0.4); Lymphocytes Absolute Auto 0.3 X10*3/uL (1.2-4.9); MANUAL DIFF FLAG SCAN; Mean Corpuscular HGB Conc 34.9 g/dl (31.0-35.0); Mean Corpuscular Hemoglobin 29.4 pg (27.0-33.0); Mean Corpuscular Volume 84.2 fL (80.0-98.0); Monocytes Absolute Auto 0.5 X10*3/uL (0.1-1.2); Monocytes Percent Auto 3.7 % (2-11); Neutrophils Percent Auto 93.3 % (45-73); Platelet Count 289 X10*3/uL (160-400); Red Blood Count 4.93 X10*6/uL (4.20-5.50); Red Cell Distribution Width 12.1 % (11.0-16.0); SCAN SMEAR FLAG 1
[2024-10-06 08:56] LABS: Appearance Urine Clear; Color Urine Yellow; Glucose Urine UA Negative (Negative); Leukocyte Esterase Urine Trace (Negative); Nitrite Urine Negative (Negative); UMIC TRIGGER UACC YES; Urine Blood Large (3+) (Negative); Urine Ketones Negative (Negative); Urine Pregnancy NEGATIVE (NEGATIVE); Urine Protein Negative (Neg-Trace)
[2024-10-06 08:57] LABS: UPreg QC Valid YES
[2024-10-06 08:58] LABS: Bacteria Urine None Seen (None Seen); Hyaline Casts Urine 0-2 /LPF (0-2); RBC Urine >20 /HPF (0-2); WBC Urine 0-5 /HPF (0-5)
[2024-10-06 09:13] LABS: Alanine Aminotransferase 43 U/L (0-31); Albumin Level 4.4 g/dL (3.5-5.0); Alkaline Phosphatase 49 U/L (39-117); Anion Gap 10 (12-20); Aspartate Amino Transferase 42 U/L (5-31); Bilirubin Direct 0.3 mg/dL (0.0-0.5); Bilirubin Total 0.7 mg/dL (0.0-1.0); Blood Urea Nitrogen 13 mg/dL (9-16); Calcium 9.8 mg/dL (8.4-10.2); Carbon Dioxide 24 mmol/L (22-29); Chloride 112 mmol/L (96-108); Estimated Glomerular Filt Rate > 60; Glucose Random 121 mg/dL (60-115); Lipase 15 U/L (8-78); Potassium 4.2 mmol/L (3.3-5.1); Sodium 142 mmol/L (135-145); Total Protein 7.6 g/dL (6.5-8.0)
[2024-10-06 09:18] LABS: SLIDE REVIEW VERIFIED
--- OUTSIDE RECORDS SUMMARY | 2024-10-06 09:58 | XMS_ITS | Patient Health Record ---
Author Organization [facility] Address [address] [place] [address] Care Team Providers Care Sky Cap Name Role Phone CARMEN PADRO Unavailable [phone] Allergies Allergen (clinical drug ingredient) Drug/Non Drug [...] Insured Coverage Start Date Coverage End Date [facility] [address] [address] [place] [address] [id number] CHARLY VICENTE Self - patient is the insured Medical (General) History Surgical History Surgery Date(Month/Year)
--- NOTE | 2024-10-06 11:05 | ED_ITS ---
HPI - Nausea/Vomiting/Diarrhea General Chief complaint: Nausea/Vomiting/Diarrhea Stated complaint: Blood in stool, nausea Time Seen by Provider: 10/06/24 10:58 Source: patient, family and old records reviewed Mode of arrival: ambulatory Limitations: no limitations History of Present Illness ED Provider: IOANA MORSE Narrative: 28 yo female with PMH of asthma no prior abdominal surgery no recent abx but ate at a steakhouse last night and started with chills n/v abdominal pain and bloody mucous in her stool. This has never happened before. She has cramps and now small amounts of bloody stools. No fevers reported not on blood thinners. MD elicited complaint: nausea, vomiting, diarrhea and abdominal pain Onset (ago): day(s) (1) Description of vomiting: watery Description of diarrhea: blood and mucus Associated nausea: Yes Associated abdominal pain: Yes Location of pain: diffuse Radiation: diffuse Pain consistency: constant Severity: moderate Quality: stabbing Exacerbating factors: movement Relieving factors: none Context: possible food poisoning Associated symptoms: fever/chills, loss of appetite, malaise, nausea/vomiting and weakness Related Data Previous Rx's ?Medication ?Instructions ?Recorded nebulizers (Altera Nebulizer #1 ea 11/23/21 Handset) omeprazole 40 mg capsule,delayed 40 mg PO DAILY #30 caps 03/07/23 release budesonide-formoterol HFA 160 2 puff inhalation BID 30 days 07/19/23 mcg-4.5 mcg/actuation aerosol #10.2 grams inhaler (Symbicort) tiotropium bromide 2.5 2 puff inhalation DAILY 30 days #1 07/22/23 mcg/actuation mist for inhalation ea (Spiriva Respimat) vitamin with calcium 1 tab PO DAILY #90 tabs 07/24/23 no.72-iron 27 mg-folic acid 1 mg tablet ( Vitamins Plus Low Iron) montelukast 10 mg tablet 10 mg PO BEDTIME #90 tabs 11/21/23 (Singulair) albuterol sulfate 90 mcg/actuation 2 puff PO Q6H PRN for wheezing 03/24/24 aerosol inhaler #8.5 ea azithromycin 250 mg tablet 250 mg PO ONCE 5 days #6 tabs 04/07/24 prednisone 20 mg tablet 20 mg PO .qd 5 days #5 tabs 04/07/24 albuterol sulfate 2.5 mg/3 mL 2.5 mg (3 mL) inhalation Q8H PRN 06/01/24 (0.083 %) solution for nebulization shortness of breath or wheezing 1 month #270 mL levocetirizine 5 mg tablet 5 mg PO DAILY #90 tabs 07/27/24 amoxicillin 875 mg-potassium 1 tab PO BID #14 tabs 10/06/24 clavulanate 125 mg tablet fluticasone propionate 50 2 spray intranasal DAILY 1 month 10/06/24 mcg/actuation nasal #16 grams spray,suspension (Allergy Relief (fluticasone)) hydrocodone 5 mg-acetaminophen 325 1 tab PO Q6H PRN pain #10 tabs 10/06/24 mg tablet ondansetron 4 mg disintegrating 4 mg PO Q8H PRN nausea and 10/06/24 tablet vomiting #20 tabs Allergies Allergy/AdvReac Type Severity Reaction Status Date / Time fluconazole [From DIFLUCAN] Allergy Unknown RASH Verified 10/06/24 08:34 Review of Systems 2 Review of Systems: Constitutional : No Weight loss, No Fever, pos Chills ENT/Mouth : No sore throat, No Rhinorrhea Eyes: No Swelling, No Redness Cardiovascular : No Chest Pain, No SOB, NoEdema Respiratory : No Cough, No Sputum, No Wheezing Gastrointestinal : Positive Nausea, Positive Vomiting, positive Diarrhea, positive abdominal Pain, pos Hematochezia, No Melena Genitourinary : No Dysuria, No Urinary Frequency, No Hematuria, No Urgency Musculoskeletal : No joint pain, No Myalgias, No Joint Swelling Skin : No Skin Lesions, No rash Neuro : No Weakness, No Numbness, No Dizziness, No Headache Psych : No Anxiety/Panic, No Depression All other systems reviewed and are negative. Gastrointestinal: Gastrointestinal: Reports nausea PMFSH Past Medical History Attestation statement: The following information was validated with the patient. Source: old records reviewed Medical History Chronic cough Allergy-induced asthma Surgical History History of tooth extraction Family History Family History Father Medical history unknown Mother Hyperlipidemia Hypertension Afib Alcoholism Substance use disorder Mental health disorder Social History Social History Housing: Condominium Alcohol intake: current Alcohol intake frequency: a few times a month Patient Tobacco Use Status: Never used Tobacco e-Cigarette/Vaping Use: Never Used Advance Directives: No Advance Directives Information Provided: Yes service: No Current occupational status: employed Current occupation: [id number] Sexual orientation: Straight/Heterosexual Gender identity: Female Cognitive needs: No Hearing needs: No Vision needs: Yes Physical Exam 2 Vital Signs: Vital Signs: Last Vital Signs Temp 98.1 F 10/06/24 08:31 Pulse 101 H 10/06/24 08:31 Resp 16 10/06/24 08:31 BP 134/86 10/06/24 08:31 Pulse Ox 96 10/06/24 08:31 O2 Del Method Room Air 10/06/24 08:31 BMI result Body Mass Index 37.2 Appearance: Alert. Oriented X3. No acute distress. Eyes: Pupils equal, round and reactive to light. ENT: Pharynx normal. Neck: Normal inspection. Neck supple. CVS: Normal heart rate and rhythm. Pulses normal. Respiratory: No respiratory distress. Breath sounds normal. Abdomen: Soft and mild diffuse ttp no rebound Rectal: pink red mucousy stools Skin: Skin warm and dry. Normal skin color. Normal skin turgor. Extremities: No lower extremity edema. No calf ttp Neuro: Oriented X 3. No motor deficit. No sensory deficit. CN2-12 intact Medications Administered Discontinued Medications Generic Name Dose Route Start Last Admin Trade Name Omarq PRN Reason Stop Dose Admin Lactated Ringer's 1,000 mls @ 999 mls/hr 10/06/24 11:03 10/06/24 14:06 Lr IV 10/06/24 12:03 Infused .Q1H1M ONE Infusion Iohexol 100 ml 10/06/24 13:26 10/06/24 13:26 Iohexol 350 Mg/Ml 100 Ml Infus..Btl IV 10/06/24 13:27 85 ml ONCE ONE Administration Morphine Sulfate 4 mg 10/06/24 11:14 10/06/24 11:32 Morphine Sulfate 4 Mg/Ml Cartridge IVPUSH 10/06/24 11:15 4 mg ONCE ONE Administration Protocol Ondansetron HCl 4 mg 10/06/24 08:36 10/06/24 08:39 Ondansetron Odt 4 Mg Tab.Echo SOMERS 10/06/24 08:37 4 mg ONCE ONE Administration Medical Decision Making Medical Decision Making [facility] Narrative: 28 yo female with PMH of asthma who now has mucousy blood stools and pain after going to a steak house. She is not on thinners has never had this before and no recent abx use at this time IVF, IV morphine for pain, CT scan for possible colitis - she is not immunocompromised and this could be E. Coli would hold antibiotics at this time to prevent HUS. Stool studies ordered. Differential Diagnosis Differential Diagnoses: The differential diagnosis associated with the presentation includes food toxicity, IBD, colitis Admission/Observation Consideration of admission/observation: Escalation of care including admission/observation considered VS stable, no sig bleeding, VS stable, discussed with GI she is not having any sig bleeding pain improved and tolerating PO Consult Healthcare Provider Management of the patient was discussed with: Mental Tester (ziyad to DC home on abx per Margarito given normal stool studies brat diet pain control) Lab Data [facility] Lab Attestation statement: I reviewed the patient's lab results. 10/06/24 08:42 10/06/24 08:42 Labs: Lab Results 10/06/24 10/06/24 Range/Units 08:42 11:17 WBC 14.0 H (4.8-10.8) X10*3/uL RBC 4.93 (4.20-5.50) X10*6/uL Hgb 14.5 (12.0-16.0) g/dl Hct 41.5 (37.0-47.0) % MCV 84.2 (80.0-98.0) fL MCH 29.4 (27.0-33.0) pg MCHC 34.9 (31.0-35.0) g/dl RDW 12.1 (11.0-16.0) % Plt Count 289 (160-400) X10*3/uL MPV 9.0 L (9.4-12.3) fL Immature Gran % (Auto) 0.4 (0.0-0.4) % Neut % (Auto) 93.3 H (45-73) % Lymph % (Auto) 2.0 L (20-40) % [place] % (Auto) 3.7 (2-11) % Eos % (Auto) 0.3 (0-4) % Baso % (Auto) 0.3 (0-2) % Lymph # (Auto) 0.3 L (1.2-4.9) X10*3/uL [place] # (Auto) 0.5 (0.1-1.2) X10*3/uL Eos # (Auto) 0.0 (0.0-0.4) X10*3/uL Baso # (Auto) 0.0 (0.0-0.2) X10*3/uL Abs Immat Gran (auto) 0.05 H (0.00-0.03) X10*3/uL Absolute Neuts (auto) 13.0 H (2.0-8.3) x10*3/uL Absolute Nucleated RBC 0.000 (0.0-0.012) X10*3/uL Nucleated RBC % (auto) 0.0 (0.0-0.2) /100WBC Smear Tech's Comments VERIFIED Sodium 142 (135-145) mmol/L Potassium 4.2 (3.3-5.1) mmol/L Chloride 112 H (96-108) mmol/L Carbon Dioxide 24 (22-29) mmol/L Anion Gap 10 L (12-20) BUN 13 (9-16) mg/dL Creatinine 0.75 (0.5-1.4) mg/dL Estim Creat Clear Calc 126.0 Estimated GFR > 60 Random Glucose 121 H (60-115) mg/dL Lactic Acid 0.8 (0.5-2.0) mmol/L Calcium 9.8 (8.4-10.2) mg/dL Total Bilirubin 0.7 (0.0-1.0) mg/dL Direct Bilirubin 0.3 (0.0-0.5) mg/dL AST 42 H (5-31) U/L ALT 43 H (0-31) U/L Alkaline Phosphatase 49 (39-117) U/L Total Protein 7.6 (6.5-8.0) g/dL Albumin 4.4 (3.5-5.0) g/dL Lipase 15 (8-78) U/L Urine Color Yellow Urine Appearance Clear Urine pH 5.0 (5.0-9.0) Ur Specific [place] 1.020 (1.005-1.025) Urine Protein Negative (Neg-Trace) mg/dL Urine Glucose (UA) Negative (Negative) mg/dL Urine Ketones Negative (Negative) mg/dL Urine Blood Large (3+) H (Negative) Urine Nitrite Negative (Negative) Ur Leukocyte Esterase Trace H (Negative) Urine RBC >20 H (0-2) /HPF Urine WBC 0-5 (0-5) /HPF Ur Squamous Epith Cells 6-10 (0-2) /HPF Urine Bacteria None Seen (None Seen) Hyaline Casts 0-2 (0-2) /LPF Urine Test NEGATIVE (NEGATIVE) Stl C. cayetanensis PCR Not Detected (Not Detect.) Stool Rotavirus A PCR Not Detected (Not Detect.) Stl Adenov F 40/41 PCR Not Detected (Not Detect.) Stool Astrovirus (PCR) Not Detected (Not Detect.) Stool Campylobacter PCR Not Detected (Not Detect.) Stool Cryptosporidium PCR Not Detected (Not Detect.) Stl Sh Tox Pr E STEC PCR Not Detected (Not Detect.) Stool E coli O157 PCR Not applicable (Not Detect.) Stl Enterotoxigenic E PCR Not Detected (Not Detect.) Stool EPEC (PCR) Not Detected (Not Detect.) Stool EAEC (PCR) Not Detected (Not Detect.) Stl E. histolytica PCR Not Detected (Not Detect.) Stool Giardia Lamblia PCR Not Detected (Not Detect.) Stl P. shigelloides PCR Not Detected (Not Detect.) Stool Salmonella PCR Not Detected (Not Detect.) Stool Sapovirus (PCR) Not Detected (Not Detect.) Stl Shigella/EIEC PCR Not Detected (Not Detect.) St Y.enterocolitica PCR Not Detected (Not Detect.) Stool Vibrio (PCR) Not Detected (Not Detect.) Stl Vibrio cholerae PCR Not Detected (Not Detect.) Stl Norovirus GI/GII PCR Not Detected (Not Detect.) C. difficile Tox B Gene NEGATIVE (Negative) Independent Interpretation I performed an independent interpretation of an: CT Scan (colitis) Radiology Impression Discussion of test interpretation with radiology: I have reviewed the radiologist's reading. Independent Historian Clinical information obtained from an independent historian. History obtained from or confirmed by: Parent External Record Review External record reviewed: Outpatient record Prescription Management I considered prescription management with: Pain Medication, Antibiotic and Other Discharge Plan Discharge Clinical Impression: Colitis, Bright red rectal bleeding Patient Disposition: Home, Self-Care Instructions: Rectal Bleeding (ED), Acute Nausea and Vomiting (ED), Acute Diarrhea (ED), Colitis (ED) Additional Instructions: labs reassuring normal lactic acid and no anemia discussed with GI doctor - start antibiotics and eat BRATTY diet - bananas, apple sauce, rice, toast and yogurt return for worsening pain, fevers, increased blood in stools, unable to eat or drink, dizziness/weakness or any other concerns. rest and stay hydrated, avoid motrin and aspirin stool studies negative including c diff Prescriptions: New hydrocodone-acetaminophen 5-325 mg tablet 1 tab PO Q6H PRN (Reason: pain) Qty: 10 0RF Rx Instructions: partial fill okay; Partial Fill upon patient request. ondansetron 4 mg tablet,disintegrating 4 mg PO Q8H PRN (Reason: nausea and vomiting) Qty: 20 0RF amoxicillin-pot clavulanate 875-125 mg tablet 1 tab PO BID Qty: 14 0RF No Action Spiriva Respimat 2.5 mcg/actuation mist 2 puff inhalation DAILY 30 Days Qty: 1 11RF montelukast [Singulair] 10 mg tablet 10 mg PO BEDTIME Qty: 90 3RF albuterol sulfate 90 mcg/actuation HFA aerosol inhaler 2 puff PO Q6H PRN (Reason: for wheezing) Qty: 8.5 5RF albuterol sulfate 2.5 mg /3 mL (0.083 %) solution for nebulization 2.5 mg inhalation Q8H PRN (Reason: shortness of breath or wheezing) 30 Days Qty: 270 1RF Rx Instructions: as needed levocetirizine 5 mg tablet 5 mg PO DAILY Qty: 90 0RF fluticasone propionate [Allergy Relief (fluticasone)] 50 mcg/actuation spray,suspension 2 spray intranasal DAILY 30 Days Qty: 16 1RF Rx Instructions: administer into each nostril (DME) Altera Nebulizer Handset Misc See Rx Instructions .Route Qty: 1 0RF Rx Instructions: As directed omeprazole 40 mg capsule,delayed release(DR/EC) 40 mg PO DAILY Qty: 30 5RF Vitamin Plus Low Iron 27 mg iron- 1 mg tablet 1 tab PO DAILY Qty: 90 4RF budesonide-formoterol [Symbicort] 160-4.5 mcg/actuation HFA aerosol inhaler 2 puff inhalation BID 30 Days Qty: 10.2 11RF prednisone 20 mg tablet 20 mg PO .qd 5 Days Qty: 5 0RF azithromycin 250 mg tablet 250 mg PO ONCE 5 Days Qty: 6 0RF Rx Instructions: Take 2 tablets today then 1 daily [place]: [facility] [place] Group] (call to schedule) Stand Alone Forms: Work/School Release Print Language: Belgian
[2024-10-06] MEDS: Lactated Ringers 1,000 ML 999 ML IV (11:28)
[2024-10-06] MEDS: Morphine Sulfate 4 MG/ML CARTRIDGE IVPUSH (11:32)
[2024-10-06 11:54] LABS: Lactic Acid 0.8 mmol/L (0.5-2.0)
[2024-10-06 12:38] LABS: CDiff Gene PCR NEGATIVE (Negative)
[2024-10-06 13:20] LABS: Adenovirus F 40/41 Not Detected (Not Detect.); Astrovirus Not Detected (Not Detect.); Campylobacter Not Detected (Not Detect.); Cryptosporidium Not Detected (Not Detect.); Cyclospora cayetanensis Not Detected (Not Detect.); E. coli EAEC Not Detected (Not Detect.); E. coli EPEC Not Detected (Not Detect.); E. coli ETEC Not Detected (Not Detect.); E. coli STEC Not Detected (Not Detect.); Entamoeba histolytica Not Detected (Not Detect.); Giardia lamblia Not Detected (Not Detect.); Norovirus GI/GII Not Detected (Not Detect.); Plesiomonas shigelloides Not Detected (Not Detect.); Rotavirus A Not Detected (Not Detect.); Salmonella Not Detected (Not Detect.); Sapovirus Not Detected (Not Detect.); Shigella sp./EIEC Not Detected (Not Detect.); Vibrio Not Detected (Not Detect.); Vibrio Cholerae Not Detected (Not Detect.); Yersinia enterocolitica Not Detected (Not Detect.)
[2024-10-06] MEDS: iohexoL 350 MG/ML 100 ML INFUS..BTL IV (13:26)
--- NOTE | 2024-10-06 14:30 | PC.NURSE ---
patient given crackers and water to PO trial. patient tolerating well.
[2024-10-06 15:00] VITALS: BP 166/89; PULSE 77; RESP 18; TEMP 36.6; O2SAT 99
== END 2024-10-06 15:00 | disposition home or self-care (01) ==
PROVIDERS: Emergency Provider Emergency Medicine; PCP Internal Medicine
DX: K52.9 Noninfective gastroenteritis and colitis, unspecified (principal); K62.5 Hemorrhage of anus and rectum; R11.2 Nausea with vomiting, unspecified; J45.909 Unspecified asthma, uncomplicated; Z79.899 Other long term (current) drug therapy
CPT/HCPCS: 36415; 74177; 80048; 80076; 81001; 81025; 83605; 83690; 85025; 87040; 87493; 87507; 96361; 96374; 99283; 99284; J2270; J7120; Q9967

== ENCOUNTER → 2024-10-06 11:03 | Outpatient (BNV) | payer OTHER, MEDICAID, SELFPAY | PROVIDERS: Emergency Provider Emergency Medicine; PCP Internal Medicine; Visit Provider Radiology Diagnostic Radiology | DX: K52.9 Noninfective gastroenteritis and colitis, unspecified (principal) | CPT/HCPCS: 74177 ==

== ENCOUNTER 2024-12-22 10:08 | Outpatient (AMB) | payer OTHER, MEDICAID, SELFPAY ==
--- NOTE | 2024-12-22 10:11 | A.OFFPC_ITS ---
Intake Visit Reasons: tv Allergies fluconazole [From DIFLUCAN] Allergy (Unknown, Verified 10/06/24 08:34) RASH Medication List - Last Reconciled 12/22/24 by Kathleen Jenkins MD albuterol sulfate 90 mcg/actuation 2 puffs PO Q6H PRN albuterol sulfate 2.5 mg (3 mL) inhalation Q8H PRN 1 month amoxicillin-pot clavulanate 875-125 mg 1 tab PO BID azithromycin 250 mg PO ONCE 5 days budesonide-formoterol 160-4.5 mcg/actuation (Symbicort) 2 puffs inhalation BID 30 days fluticasone propionate 50 mcg/actuation (Allergy Relief (fluticasone)) 2 sprays intranasal DAILY 1 month hydrocodone-acetaminophen 5-325 mg 1 tab PO Q6H PRN levocetirizine 5 mg PO DAILY montelukast (Singulair) 10 mg PO BEDTIME nebulizers (Altera Nebulizer Handset) As directed omeprazole 40 mg PO DAILY ondansetron 4 mg PO Q8H PRN PNV,calcium 31-[id number] acid 27 mg iron- 1 mg ( Vitamins Plus Low Iron) 1 tab PO DAILY prednisone 20 mg PO .qd 5 days tiotropium bromide 2.5 mcg/actuation (Spiriva Respimat) 2 puffs inhalation DAILY 30 days Tobacco use date assessed: 04/07/24 Dental Screening Dental Screen Date: 04/07/24 HPI tv HPI Details History - The patient is a 29-year-old female pr esenting with headaches and inability to sleep. - States that her mother recently over the weekend. - Reports not being able to sleep for tw o consecutive nights following the news of her mother's passing. - The loss occurred after her mother, wh o had lung cancer, experienced worsening symptoms, leading to her sudden demise despite being taken in for hospice care. - Patient attributes her headaches to sl eep deprivation. Social History: - Reports the recent loss of her mother. Family History: - Mother had a diagnosis of lung cancer. Problem List - Headaches due to bereavement - Insomnia related to emotional distress Patient Instructions - Take lorazepam tablets as prescribed. Avoid driving or operating heavy machinery. - Rest and allow the emotional healing p rocess to take time. - Contact the clinic if symptoms persist or worsen after a week to 10 days. Review of Systems - General: No fever no chills - Neurological: no dizziness - Ear nose throat: No sore throat no hearing difficulty no ear pain - Cardiovascular: No syncope, no chest pain, no palpitations - Gastrointestinal: No nausea vomiting or diarrhea PFSH Medical History Chronic cough Allergy-induced asthma Surgical History History of tooth extraction Family History Father Medical history unknown Mother Hyperlipidemia Hypertension Afib Alcoholism Substance use disorder Mental health disorder Social History Housing: Condominium Alcohol intake: current Alcohol intake frequency: a few times a month Patient Tobacco Use Status: Never used Tobacco e-Cigarette/Vaping Use: Never Used service: No Current occupational status: employed Current occupation: [employer] Sexual orientation: Straight/Heterosexual Gender identity: Female Cognitive needs: No Hearing needs: No Vision needs: Yes Questionnaire Thrive Questionnaire Date Thrive assessed: 04/07/24 THELMA-7 AMB Questionnaire THELMA-7 Date THELMA - 7 assessed: 04/07/24 Source: Developed by Drs. Nic Baxter, Skye Jacob, Yuri Del Valle and colleagues, with an educational gen from [email or web address]. Physical exam (Primary Care) Tobacco/Smoking Status: Tobacco use Status Tobacco use date assessed 04/07/24 12/22/24 10:11 Patient Tobacco Use Status Never used Tobacco 12/22/24 10:11 e-Cigarette/Vaping Use Never Used 12/22/24 10:11 Thrive Assessment: Date of Thrive Assessment Date Thrive assessed 04/07/24 12/22/24 10:11 Telehealth Telehealth Telehealth Platform: [facility] Location of provider rendering services: practice address Location of patient: address on file Patient Identification confirmed using: Name, : Yes Telehealth method: video (Attempted) Patient verbally consented to treatment: Yes Patient verbally consented to billing insurance company: Yes Patient informed of any privacy concerns related to visit: Yes Minutes spent on Phone/Video with Pt.: 13 Coding Level of Care Code Tele Est Pt Level 3 (30675) Diagnoses Grieving F43.21 Emotional crisis F43.20 Adjustment insomnia F51.02 Insomnia type: adjustment Other headache syndrome G44.89 Headache type: other headache syndrome Assessment & Plan Assessment & Plan (1) Grieving: Code(s): F43.21 - Adjustment disorder with depressed mood Category: Medical (2) Emotional crisis: Code(s): F43.20 - Adjustment disorder, unspecified Category: Medical (3) Unable to sleep: Code(s): G47.00 - Insomnia, unspecified Category: Medical Qualifiers: Insomnia type: adjustment Qualified Code(s): F51.02 - Adjustment insomnia (4) Headache: Code(s): R51.9 - Headache, unspecified Category: Medical Qualifiers: Headache type: other headache syndrome Qualified Code(s): G44.89 - Other headache syndrome Plan History - The patient is a 29-year-old female presenting with headaches and inability to sleep. - States that her mother recently over the weekend. - Reports not being able to sleep for two consecutive nights following the news of her mother's passing. - The loss occurred after her mother, who had lung cancer, experienced worsening symptoms, leading to her sudden demise despite being taken in for hospice care. - Patient attributes her headaches to sleep deprivation. Social History: - Reports the recent loss of her mother. Family History: - Mother had a diagnosis of lung cancer. Problem List - Headaches due to bereavement - Insomnia related to emotional distress Patient Instructions - Take lorazepam tablets as prescribed. Avoid driving or operating heavy machinery. - Rest and allow the emotional healing process to take time. - Contact the clinic if symptoms persist or worsen after a week to 10 days. Medications: New lorazepam 1 mg PO BID 10 days PRN 20 tabs 0RF anxiety
--- OUTSIDE RECORDS SUMMARY | 2024-12-22 11:33 | XMS_ITS | Patient Health Record ---
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
== END 2024-12-22 10:35 | disposition home or self-care (01) ==
LOC: HO.HMCC 10:08
PROVIDERS: PCP Internal Medicine; Visit Provider Internal Medicine
DX: G44.89 Other headache syndrome (principal); F43.21 Adjustment disorder with depressed mood; F43.20 Adjustment disorder, unspecified; F51.02 Adjustment insomnia

== ENCOUNTER → 2024-12-22 10:08 | Outpatient (BNVA) | payer OTHER, MEDICAID, SELFPAY | PROVIDERS: PCP Internal Medicine; Visit Provider Internal Medicine ==

== ENCOUNTER 2025-01-14 08:22 | Outpatient (AMB) | payer OTHER, MEDICAID, SELFPAY ==
--- OUTSIDE RECORDS SUMMARY | 2025-01-14 08:34 | XMS_ITS | Patient Health Record ---
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
--- NOTE | 2025-01-14 09:36 | MHC.PC.OV ---
Intake Visit Reasons: med management Allergies fluconazole (From DIFLUCAN) Allergy (Unknown, Verified 10/06/24 08:34) RASH Medication List - Last Reconciled 01/14/25 by Kathleen Jenkins MD albuterol sulfate 90 mcg/actuation 2 puffs PO Q6H PRN albuterol sulfate 2.5 mg (3 mL) inhalation Q8H PRN 1 month amoxicillin-pot clavulanate 875-125 mg 1 tab PO BID azithromycin 250 mg PO ONCE 5 days budesonide-formoterol 160-4.5 mcg/actuation (Symbicort) 2 puffs inhalation BID 30 days fluticasone propionate 50 mcg/actuation (Allergy Relief (fluticasone)) 2 sprays intranasal DAILY 1 month hydrocodone-acetaminophen 5-325 mg 1 tab PO Q6H PRN levocetirizine 5 mg PO DAILY lorazepam 1 mg PO BID PRN 10 days montelukast (Singulair) 10 mg PO BEDTIME nebulizers ([facility] Nebulizer Handset) As directed omeprazole 40 mg PO DAILY ondansetron 4 mg PO Q8H PRN PNV,calcium 16-ieeo-wzegu acid 27 mg iron- 1 mg ( Vitamins Plus Low Iron) 1 tab PO DAILY prednisone 20 mg PO .qd 5 days tiotropium bromide 2.5 mcg/actuation (Spiriva Respimat) 2 puffs inhalation DAILY 30 days Tobacco use date assessed: 04/07/24 Dental Screening Dental Screen Date: 04/07/24 HPI med management HPI Details History - The patient is a 29-year-old female presenting for a refill of lorazepam. still going thru bereavement process after passing of her mother recently - The medication was initially taken twice daily but was adjusted to mainly nighttime use. - The reason for nighttime use was due to excessive daytime somnolence when taken twice daily; nighttime use primarily aids in sleeping through mind racing and difficulties staying asleep. - The patient reports improvement in sleep quality with nighttime use, although she does not use it every night. - Occasional use is when unable to fall asleep, especially when anticipating waking up for work. - The patient denies experiencing hangover effects or impaired daytime functioning from the medication. Medications: - Lorazepam 1 mg: Primarily used at night to aid in sleep and reduce nocturnal awakenings. Social History: - Employment: The patient mentioned having work commitments, indicating employment. - Sleep Patterns: The patient reports occasional difficulty sleeping, particularly struggling with mind racing at night. Problem List - Insomnia - Bereavement Patient Instructions - Continue taking lorazepam primarily at night as needed to assist with sleep. 60 tabs sent .5 mg - Be cautious not to rely habitually on the medication. - Follow up at the scheduled April appointment for a physical exam. Review of Systems - General: No fever no chills - Neurological: No headaches no dizziness - Ear nose throat: No sore throat no hearing difficulty no ear pain - Cardiovascular: No syncope, no chest pain, no palpitations - Gastrointestinal: No nausea vomiting or diarrhea PFSH Medical History Chronic cough Allergy-induced asthma Surgical History History of tooth extraction Family History Father Medical history unknown Mother Hyperlipidemia Hypertension Afib Alcoholism Substance use disorder Mental health disorder Social History Housing: Condominium Alcohol intake: current Alcohol intake frequency: a few times a month Patient Tobacco Use Status: Never used Tobacco e-Cigarette/Vaping Use: Never Used service: No Current occupational status: employed Current occupation: [employer] Sexual orientation: Straight/Heterosexual Gender identity: Female Cognitive needs: No Hearing needs: No Vision needs: Yes Questionnaire Thrive Questionnaire Date Thrive assessed: 04/07/24 THELMA-7 AMB Questionnaire THELMA-7 Date THELMA - 7 assessed: 04/07/24 Source: Developed by Drs. Nic Baxter, Skye Jacob, Yuri Del Valle and colleagues, with an educational gen from [employer]. Physical exam (Primary Care) Tobacco/Smoking Status: Tobacco use Status Tobacco use date assessed 04/07/24 01/14/25 09:36 Patient Tobacco Use Status Never used Tobacco 01/14/25 09:36 e-Cigarette/Vaping Use Never Used 01/14/25 09:36 Thrive Assessment: Date of Thrive Assessment Date Thrive assessed 04/07/24 01/14/25 09:36 Telehealth Telehealth Telehealth Platform: [facility] Location of provider rendering services: practice address Location of patient: address on file Patient Identification confirmed using: Name, : Yes Telehealth method: video Patient verbally consented to treatment: Yes Patient verbally consented to billing insurance company: Yes Patient informed of any privacy concerns related to visit: Yes Minutes spent on Phone/Video with Pt.: 13 Coding Level of Care Code Tele Est Pt Level 3 (21661) Diagnoses Grieving F43.21 Adjustment insomnia F51.02 Insomnia type: adjustment Assessment & Plan Assessment & Plan (1) Grieving: Code(s): F43.21 - Adjustment disorder with depressed mood Category: Medical (2) Unable to sleep: Code(s): G47.00 - Insomnia, unspecified Category: Medical Qualifiers: Insomnia type: adjustment Qualified Code(s): F51.02 - Adjustment insomnia Plan History - The patient is a 29-year-old female presenting for a refill of lorazepam. still going thru bereavement process after passing of her mother recently - The medication was initially taken twice daily but was adjusted to mainly nighttime use. - The reason for nighttime use was due to excessive daytime somnolence when taken twice daily; nighttime use primarily aids in sleeping through mind racing and difficulties staying asleep. - The patient reports improvement in sleep quality with nighttime use, although she does not use it every night. - Occasional use is when unable to fall asleep, especially when anticipating waking up for work. - The patient denies experiencing hangover effects or impaired daytime functioning from the medication. Medications: - Lorazepam 1 mg: Primarily used at night to aid in sleep and reduce nocturnal awakenings. Social History: - Employment: The patient mentioned having work commitments, indicating employment. - Sleep Patterns: The patient reports occasional difficulty sleeping, particularly struggling with mind racing at night. Problem List - Insomnia - Bereavement Patient Instructions - Continue taking lorazepam primarily at night as needed to assist with sleep. 60 tabs sent .5 mg - Be cautious not to rely habitually on the medication. - Follow up at the scheduled April appointment for a physical exam. Medications: Changed From lorazepam 1 mg PO BID 10 days PRN 20 tabs 0RF anxiety To lorazepam 1 mg PO BID 90 days PRN 60 tabs 0RF anxiety From lorazepam 1 mg PO BID 90 days PRN 60 tabs 0RF anxiety To lorazepam 0.5 mg PO BID PRN 60 tabs 0RF anxiety 90 days
== END 2025-01-14 09:37 | disposition home or self-care (01) ==
LOC: HO.HMCC 08:22
PROVIDERS: PCP Internal Medicine; Visit Provider Internal Medicine
DX: F43.21 Adjustment disorder with depressed mood (principal); F51.02 Adjustment insomnia

== ENCOUNTER 2025-04-06 13:39 | Outpatient (AMB) | payer OTHER, MEDICAID, SELFPAY ==
--- NOTE | 2025-04-06 13:40 | A.OFFVIS_ITS ---
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 The patient states that she has had a significant cough for many years. Although, has been getting worse. Sometimes she has some severe coughing spells which she ends up vomiting. She has never passing out from her coughing spells. Her cough used to be more dry. Now, after starting inhaler therapy she has noticed that at times is more congested. She has a hard time expectorating her. She denies any exposure to any fumes or toxins. She denies any smoking. The patient does have underlying allergies although she has not had allergy testing many years. She has been treated with asthma with albuterol. She does get partial relief with the albuterol. She has tried other inhalers now Symbicort that her provides partial relief. She still struggling with a cough. Has a hard time sleeping because of the cough. She also wakes up short of breath. The patient is obese. She does have increased cardiovascular risk factors. Her or partner is with her and he is concerned because sometimes she does stop breathing in needs to wake her up or change her position. The patient has never had a sleep study. She also has underlying reflux symptoms. She takes a lot of times. Patient understands that the micro aspirations and pharyngeal angio penetration from underlying reflux disease can result with a worsening cough. The patient was coughing in the room. It appears that her cough is suggestive of some degree of tracheomalacia. Explained to the patient that with tracheomalacia is difficult to expectorate since her airway may be collapsing due to the forced exhalation while coughing. Therefore, will go ahead and request a chest x-ray and PFTs. The patient may warrant a CT scan if the x-ray is not helpful. In meantime will also request allergy testing and provide her with cough suppressant therapy. The patient does have an elevated [place] score of 10/24 and will also request a home sleep study. 07/19/2023 the patient is here for pulmonary follow-up visit. The patient has been sick now for several days. Positive sick contacts her developing worsening cough moderate to severe. Also significant wheezing. She has been using her respiratory therapy. Our only been partially helpful. We did review her PFTs the patient has significant reversible obstruction consistent with her diagnosis of asthma. She has been on Symbicort. Will go ahead and try to maximize her respiratory medicine. However, she continues to be symptomatic or having recurrent flare-ups she will benefit from biologic therapy. She has yet to get her blood work. She will get her blood work when she is better and off the prednisone. 04/06/2025 the patient is here for pulmonary follow-up visit. The patient overall has been doing okay. She continues use her Symbicort and also the Spiriva. We did talk about considering Breztri. But right now she seems to be stable on current medications. The patient also uses her rescue inhaler but typically less than twice a week. She does have significant nasal congestion. She did take some Sudafed and did help her. She takes fluticasone nasal spray. She does not perform any nasal rinsing at nighttime. I did recommend a Neti bottle was lungs uses distilled water only. In addition to that she may do better with Dymista. Therefore I will send her a prescription at this time. She will continue with her allergy medicine as well. If the patient continues to be symptomatic she can always consider biologic therapy. Will go ahead and refer her to an window display designer at this time. If she has any issues she can always call for the recommendations. Otherwise will follow-up in 8-12 months. [facility] Medical History Chronic cough Allergy-induced asthma Surgical History History of tooth extraction Family History Father Medical history unknown Mother Hyperlipidemia Hypertension Afib Alcoholism Substance use disorder Mental health disorder Social History Housing: Condominium Alcohol intake: current Alcohol intake frequency: a few times a month Patient Tobacco Use Status: Never used Tobacco e-Cigarette/Vaping Use: Never Used service: No Current occupational status: employed Current occupation: [employer] Sexual orientation: Straight/Heterosexual Gender identity: Female Cognitive needs: No Hearing needs: No Vision needs: Yes Review of Systems Const Denies fever(s) Eyes Denies change in vision ENT Reports nasal congestion, Reports nasal discharge, Denies throat swelling and Denies tongue swelling Card Denies chest pain and Reports dyspnea on exertion Resp Reports chest congestion, Reports cough, Reports dyspnea on exertion and Reports wheezing GI Reports dyspepsia, Reports heartburn and Reports vomiting Musc Reports no additional complaints Skin/Breast Denies rash Neuro Reports no additional complaints Endo Denies flushing Harpal/Lymph Denies easy bruising Aller/Immun Denies throat swelling, Denies tongue swelling and Reports wheezing Physical Exam Vital Signs: Last Vital Signs Pulse 77 04/06/25 13:41 BP 124/90 H 04/06/25 13:41 Pulse Ox 97 04/06/25 13:41 Oxygen Delivery Method Room Air 04/06/25 13:41 BMI result Body Mass Index 38.0 Const General: comfortable HEENT Head: Yes normocephalic Neck Neck: Yes supple Chest Chest palpation & inspection: normal inspection of the chest Resp Effort & Inspection: normal respiratory effort and prolonged expiratory phase Auscultation: no wheezes and diminished lung sounds Cardio Rate: regular rate Rhythm: regular rhythm Heart sounds: S1 normal heart sound present and S2 normal heart sound present GI Palpation (GI): Soft to palpation Skin General skin exam: no rashes or lesions noted Extrem General: Yes no clubbing, cyanosis or edema Assessment & Plan Assessment & Plan (1) Asthma, moderate persistent: Code(s): J45.40 - Moderate persistent asthma, uncomplicated Category: Medical Qualifiers: Asthma complication type: with acute exacerbation Qualified Code(s): J45.41 - Moderate persistent asthma with (acute) exacerbation (2) Environmental allergies: Code(s): Z91.09 - Other allergy status, other than to drugs and biological substances Category: Medical (3) Chronic cough: Code(s): R05.3 - Chronic cough Category: Medical (4) SHARON (obstructive sleep apnea): Code(s): G47.33 - Obstructive sleep apnea (adult) (pediatric) Category: Medical Plan Allergy referral continue Symbicort continue Spiriva short-acting beta agonist as needed consider biologic therapy cough suppressant: Tessalon Perles and guaifenesin with codeine F/U 8-12 months or sooner if no better Orders: Referrals Allergy & Immunology Referral J45.909 - Unspecified asthma, uncomplicated Medications: New azelastine-fluticasone 137-50 mcg/spray (Dymista) administer into each nostril 1 spray intranasal BID 23 grams 6RF Coding Level of Care Code Est Pt Level 4 (73261) Diagnoses Moderate persistent asthma with acute exacerbation J45.41 Asthma complication type: with acute exacerbation Environmental allergies Z91.09 Chronic cough R05.3 SHARON (obstructive sleep apnea) G47.33 Time Spent (min) 16
[2025-04-06 13:41] VITALS: BP 124/90; PULSE 77; O2SAT 97; BMI 38.0
--- OUTSIDE RECORDS SUMMARY | 2025-04-06 14:57 | XMS_ITS | Patient Health Record ---
Author Organization [facility] Address [address] [place] [address] Care Team Providers Care Pizza Driver Name Role Phone CARMEN PARDO Unavailable [phone] Allergies Allergen (clinical drug ingredient) Drug/Non Drug [...] Insured Coverage Start Date Coverage End Date [facility] [address] [address] [place] [address] [id number] CHARLY VICENTE Self - patient is the insured Medical (General) History Surgical History Surgery Date(Month/Year)
== END 2025-04-06 14:08 | disposition home or self-care (01) ==
LOC: HO.HPS 13:40
PROVIDERS: PCP Internal Medicine; Visit Provider Hospitalist
DX: J45.41 Moderate persistent asthma with (acute) exacerbation (principal); Z91.09 Other allergy status, other than to drugs and biological substances; R05.3 Chronic cough; G47.33 Obstructive sleep apnea (adult) (pediatric)
CPT/HCPCS: 99214

== ENCOUNTER 2025-04-07 14:21 | Outpatient (AMB) | payer OTHER, MEDICAID, SELFPAY ==
[2025-04-07 14:22] VITALS: BP 126/80; PULSE 73; O2SAT 98; BMI 38.8
--- NOTE | 2025-04-07 14:22 | A.OFFPC_ITS ---
Vital Signs 04/07/25 14:22 Height 5 ft 4 in Weight 226 lb BMI 38.8 BP 126/80 Blood Pressure Location Lt brachial Position Sitting Pulse 73 Pulse Source Pulse Oximeter Pulse Oximetry (%) 98 Intake Visit Reasons: Annual exam Allergies fluconazole (From DIFLUCAN) Allergy (Unknown, Verified 04/07/25 14:23) RASH Medication List - Last Reconciled 04/07/25 by Kathleen Jenkins MD albuterol sulfate 90 mcg/actuation 2 puffs PO Q6H PRN albuterol sulfate 2.5 mg (3 mL) inhalation Q8H PRN 1 month azelastine-fluticasone 137-50 mcg/spray (Dymista) 1 spray intranasal BID budesonide-formoterol 160-4.5 mcg/actuation 2 puffs inhalation BID levocetirizine 5 mg PO DAILY lorazepam 0.5 mg PO BID PRN 90 days montelukast (Singulair) 10 mg PO BEDTIME nebulizers (Altera Nebulizer Handset) As directed omeprazole 40 mg PO DAILY PNV,calcium 23-grkc-irxho acid 27 mg iron- 1 mg ( Vitamins Plus Low Iron) 1 tab PO DAILY tiotropium bromide 2.5 mcg/actuation (Spiriva Respimat) 2 puffs inhalation DAILY 30 days Tobacco use date assessed: 04/07/25 Dental Screening Dental Screen Date: 04/07/25 Did you have a dental visit in the last 12 months?: Yes Did you have a dental problem in the last 6 months where you did not have access to dental care?: No Was dental information given to patient?: Patient has dentist HPI Annual exam HPI Details History of Present Illness The patient is a 29-year-old female presenting for a wellness visit and medication review. Asthma: - The patient is currently under the car e of Dr. Vidal for asthma management. - Currently taking multiple inhalers inc luding Symbicort (maintenance) and a rescue inhaler. - Recently trialed Omeprazole to assess any impact on asthma symptoms, though she reports no significant improvement. Allergic Rhinitis: - The patient regularly uses allergy med ication, including Montelukast, to manage symptoms. - Also uses a nasal spray as part of her allergy management. Muscle cramps: - Reports experiencing muscle cramps and pain in both hands, which appears to be correlated with work activities involving repetitive motion like carrying baskets or opening bottles. - The cramping is characterized by a thr obbing sensation that persists throughout the day upon onset. 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 - Actively attempting weight loss and in cludes exercise as part of her routine. - Reports a significant struggle with we ight management and is working on maintaining a healthy lifestyle. Health Maintenance - Had laboratory tests done in October wing non-anemic blood levels, normal electrolytes, and normal glucose levels, though slightly elevated liver enzymes were noted. - The patient declined a flu vaccine sin ce she must obtain it at her workplace. - Tetanus vaccination is up to date. - Discussion to check with Dr. Vidal regarding the necessity of a pneumonia vaccine. [place] [facility] [place] of Care - Dr. 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 - Job involves retail duties which may i nclude carrying items that could contribute to muscle pain and cramping. Patient Instructions - Have follow-up lab work repeated fasti ng, focusing on monitoring liver enzymes. - Discuss with Dr. Vidal whether a p neumonia vaccine is recommended. - Continue to monitor any symptoms of mu scle cramping and consider reducing physical workloads if possible. Review of Systems - General: No fever no chills - Neurological: No headaches no dizzin ess - Ear nose throat: No sore throat no hearing difficulty no ear pain - Cardiovascular: No syncope, no chest pain, no palpitations - Gastrointestinal: No nausea vomiting or diarrhea - Endocrine: No polyuria polydipsia no heat intolerance - Genitourinary: No dysuria - Skin: No new complaints Physical Exam General: Cooperative, healthy appearing, comfortable, no acute distress Orientation: Patient oriented x3 Limitations: None Head: Normal to inspection Ears: Within normal limit visually Nose: Normal external nose present Face and sinus: Normal facial exam Eyes: Appearance normal, extraocular movement intact pupils reactive Neck: Normal visual inspection and supple Respiratory: Normal respiratory effort and able to speak in complete sentences. Clear to auscultation, no stridor Cardiovascular: S1 and S2 RRR Breast exam through OBGYN GI: Normal to inspection. Soft to palpation and nontender. No constipation, no diarrhea, nausea or vomiting Skin: Turgor normal, no acute findings, no moles or rashes Neuro: Patient oriented x3, motor sensory intact, balance intact, tandem pass Extremities: Normal to inspection. Range of motion intact. . PFSH Medical History Chronic cough Allergy-induced asthma Surgical History History of tooth extraction Family History Father Medical history unknown Mother Hyperlipidemia Hypertension Afib Alcoholism Substance use disorder Mental health disorder Social History Housing: Condominium Alcohol intake: current Alcohol intake frequency: a few times a month Patient Tobacco Use Status: Never used Tobacco e-Cigarette/Vaping Use: Never Used service: No Current occupational status: employed Current occupation: [employer] Sexual orientation: Straight/Heterosexual Gender identity: Female Cognitive needs: No Hearing needs: No Vision needs: Yes Questionnaire PHQ-9 Over the last 2 weeks, how often have you been bothered by any of the following problems? 1. Little interest or pleasure in doing things: not at all 2. Feeling down, depressed, or hopeless: several days 3. Trouble falling or staying asleep, or sleeping too much: not at all 4. Feeling tired or having little energy: several days 5. Poor appetite or overeating: not at all 6. Feeling bad about yourself - or that you are a failure or have let yourself or your family down: not at all 7. Trouble concentrating on things, such as reading the newspaper or watching television: not at all 8. Moving or speaking so slowly that other people could have noticed. Or the opposite - being so fidgety or restless that you have been moving around a lot more than usual: not at all 9. Thoughts that you would be better off or of hurting yourself in some way: not at all Total score: 2 Depression Screening Interpretation: Negative Depression Screening Done: Yes 50807 - PHQ-9 Billing: Yes Source: Developed by Drs. Nic Baxter, Skye Jacob, Yuri Del Valle and colleagues, with an educational gen from [employer]. Thrive Questionnaire Date Thrive assessed: 04/07/25 I am a: Patient What is your living situation today?: I have a steady place to live Within the past 12 months, did the food you bought not last and you didn't have the money to get more?: I choose not to answer this question Within the past 12 months, did you worry whether your food would run out before you got money to buy more?: Never true Do you have trouble paying for medicines?: No Do you have trouble getting transportation to medical appointments?: No Do you have trouble paying your heating and electricity bill?: No Do you have trouble taking care of your child, family member or friend?: No Do you have trouble with day-to-day activities such as bathing, preparing meals, shopping, managing finances, etc.?: No Are you currently unemployed and looking for a job?: No Are you interested in more education?: No Please select the resources that you would like help with: None Currently or been in a relationship where the following occur: No concerns reported THRIVE Score: 0 AUDIT C Alcohol Use Questionnaire (AUDIT-C) 1. How often do you have a drink containing alcohol?: Monthly or less 2. How many drinks containing alcohol do you have on a typical day when you are drinking?: 3 or 4 3. How often do you have six or more drinks on one occasion?: Never Total Score: 2 Score Reviewed/Action Taken: Yes THELMA-7 AMB Questionnaire THELMA-7 Date THELMA - 7 assessed: 04/07/25 Feeling nervous, anxious, or on edge: 1 = Several days Not being able to stop or control worryin = Several days Worrying too much about different things: 0 = Not at all Trouble relaxin = Not at all Being so restless that it is hard to sit still: 0 = Not at all Becoming easily annoyed or irritable: 0 = Not at all Feeling afraid as if something awful might happen: 0 = Not at all Total THELMA-7 score (0-4 normal; 5-9 mild; 10-14 moderate; 15-21 severe): 2 Source: Developed by Drs. Nic Baxter, Skye Jacob, Yuri Del Valle and colleagues, with an educational gen from [employer]. THELMA-7 Assessment Billing THELMA-7 Assessment Tool: THELMA-7 Assessment 47520 Physical exam (Primary Care) Vital Signs: Last Vital Signs Pulse 73 04/07/25 14:22 BP 126/80 04/07/25 14:22 Pulse Ox 98 04/07/25 14:22 BMI result Body Mass Index 38.8 Tobacco/Smoking Status: Tobacco use Status Tobacco use date assessed 04/07/25 04/07/25 14:24 Patient Tobacco Use Status Never used Tobacco 04/07/25 14:24 e-Cigarette/Vaping Use Never Used 04/07/25 14:24 PHQ-9: PHQ-9 Score PHQ-9: Total score 2 04/07/25 14:24 Depression Screening Interpretation: Negative Thrive Assessment: Date of Thrive Assessment Date Thrive assessed 04/07/25 04/07/25 14:24 Currently or been in a relationship where the following occur: No concerns reported Coding Level of Care Code Est Pt Level 3 (43921) Est Pt Prev Care 18-39y(94967) Diagnoses Encounter for general adult medical examination with abnormal findings Z00.01 Cramping of hands R25.2 LFT elevation R79.89 Moderate persistent asthma with acute exacerbation J45.41 Asthma complication type: with acute exacerbation Environmental allergies Z91.09 Additional Codes THELMA-7 Assessment Billing - THELMA-7 Assessment Tool: THELMA-7 Assessment 86974 ([id number]) PHQ-9 - 72327 - PHQ-9 Billing: Yes ([id number]) Assessment & Plan Assessment & Plan (1) Encounter for general adult medical examination with abnormal findings: Code(s): Z00.01 - Encounter for general adult medical examination with abnormal findings Category: Medical (2) Cramping of hands: Code(s): R25.2 - Cramp and spasm Category: Medical (3) LFT elevation: Code(s): R79.89 - Other specified abnormal findings of blood chemistry Category: Medical (4) Asthma, moderate persistent: Code(s): J45.40 - Moderate persistent asthma, uncomplicated Category: Medical Qualifiers: Asthma complication type: with acute exacerbation Qualified Code(s): J45.41 - Moderate persistent asthma with (acute) exacerbation (5) Environmental allergies: Code(s): Z91.09 - Other allergy status, other than to drugs and biological substances Category: Medical Plan History of Present Illness The patient is a 29-year-old female presenting for a wellness visit and medication review. Asthma: - The patient is currently under the care of Dr. Vidal for asthma management. - Currently taking multiple inhalers including Symbicort (maintenance) and a rescue inhaler. - Recently trialed Omeprazole to assess any impact on asthma symptoms, though she reports no significant improvement. Allergic Rhinitis: - The patient regularly uses allergy medication, including Montelukast, to manage symptoms. - Also uses a nasal spray as part of her allergy management. Muscle cramps: - Reports experiencing muscle cramps and pain in both hands, which appears to be correlated with work activities involving repetitive motion like carrying baskets or opening bottles. - The cramping is characterized by a throbbing sensation that persists throughout the day upon onset. 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 - Actively attempting weight loss and includes exercise as part of her routine. - Reports a significant struggle with weight management and is working on maintaining a healthy lifestyle. Health Maintenance - Had laboratory tests done in October showing non-anemic blood levels, normal electrolytes, and normal glucose levels, though slightly elevated liver enzymes were noted. - The patient declined a flu vaccine since she must obtain it at her workplace. - Tetanus vaccination is up to date. - Discussion to check with Dr. Vidal regarding the necessity of a pneumonia vaccine. [place] of Care - Dr. 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 Patient Instructions - Have follow-up lab work repeated fasting, focusing on monitoring liver enzymes. - Discuss with Dr. Vidal whether a pneumonia vaccine is recommended. - Continue to monitor any symptoms of muscle cramping and consider reducing physical workloads if possible. Orders: Orders Complete Blood Count Auto Diff Today J45.41 - Moderate persistent asthma with (acute) exacerbation, R25.2 - Cramp and spasm, R79.89 - Other specified abnormal findings of blood chemistry, Z00.01 - Encounter for general adult medical examination with abnormal findings, Z91.09 - Other allergy status, other than to drugs and biological substances Lipid Panel Today J45.41 - Moderate persistent asthma with (acute) exacerbation, R25.2 - Cramp and spasm, R79.89 - Other specified abnormal findings of blood chemistry, Z00.01 - Encounter for general adult medical examination with abnormal findings, Z91.09 - Other allergy status, other than to drugs and biological substances TSH reflex Free T4 Today J45.41 - Moderate persistent asthma with (acute) exacerbation, R25.2 - Cramp and spasm, R79.89 - Other specified abnormal findings of blood chemistry, Z00.01 - Encounter for general adult medical examination with abnormal findings, Z91.09 - Other allergy status, other than to drugs and biological substances Comprehensive [place]. Panel Fast Today J45.41 - Moderate persistent asthma with (acute) exacerbation, R25.2 - Cramp and spasm, R79.89 - Other specified abnormal findings of blood chemistry, Z00.01 - Encounter for general adult medical examination with abnormal findings, Z91.09 - Other allergy status, other than to drugs and biological substances Vitamin D 25-OH (D2 and D3) Today J45.41 - Moderate persistent asthma with ( acute) exacerbation, R25.2 - Cramp and spasm, R79.89 - Other specified abnormal findings of blood chemistry, Z00.01 - Encounter for general adult medical examination with abnormal findings, Z91.09 - Other allergy status, other than to drugs and biological substances Medications: Discontinued lorazepam Discontinued Reason: Change Referral Type 0.5 mg PO BID 90 days PRN 60 tabs 0RF anxiety
--- OUTSIDE RECORDS SUMMARY | 2025-04-07 15:33 | XMS_ITS | Patient Health Record ---
Author Organization [facility] Address [address] [place] [address] Care Team Providers Care Computer Support Specialist Name Role Phone CARMEN PARDO Unavailable [phone] Allergies Allergen (clinical drug ingredient) Drug/Non Drug [...] Insured Coverage Start Date Coverage End Date [facility] [address] [address] [place] [address] [id number] CHARLY VICENTE Self - patient is the insured Medical (General) History Surgical History Surgery Date(Month/Year)
== END 2025-04-07 14:45 | disposition home or self-care (01) ==
LOC: HO.HMCC 14:22
PROVIDERS: PCP Internal Medicine; Visit Provider Internal Medicine
DX: Z00.00 Encounter for general adult medical examination without abnormal findings (principal); R25.2 Cramp and spasm; R79.89 Other specified abnormal findings of blood chemistry; J45.41 Moderate persistent asthma with (acute) exacerbation; Z91.09 Other allergy status, other than to drugs and biological substances

== ENCOUNTER → 2025-04-07 14:21 | Outpatient (BNVA) | payer OTHER, MEDICAID, SELFPAY | PROVIDERS: PCP Internal Medicine; Visit Provider Internal Medicine | DX: Z00.01 Encounter for general adult medical examination with abnormal findings (principal); R25.2 Cramp and spasm; R79.89 Other specified abnormal findings of blood chemistry; J30.9 Allergic rhinitis, unspecified; J45.41 Moderate persistent asthma with (acute) exacerbation; Z91.09 Other allergy status, other than to drugs and biological substances | CPT/HCPCS: 96127 ==